=== PATIENT | male | born 1945 | race Caucasian/White ===

== ENCOUNTER → 2016-08-18 | Outpatient (CLI) | payer MEDICARE, BC ==
[2016-08-18 08:05] LABS: ABSOLUTE EOSINOPHILS # (AUTO) 0.1 10^3/uL (0.0-0.6); ABSOLUTE LYMPHOCYTES (AUTO) 1.4 10^3/uL (0.5-4.7); ABSOLUTE MONOCYTES (AUTO) 0.4 10^3/uL (0.1-1.4); ABSOLUTE NEUT (AUTO) 1.7 10^3/uL (1.7-8.2); BASOPHILS % (AUTO) 0.7 % (0-2); EOSINOPHILS % (AUTO) 2.7 % (0-6); HEMATOCRIT 42.5 % (37.9-51.0); HEMOGLOBIN 14.9 g/dL (13.5-17.0); HGB HCT DIFFERENCE 2.2; LYMPHOCYTES % (AUTO) 39.5 % (13-45); MEAN CORPUSCULAR VOLUME 86 fl (80-97); RED BLOOD COUNT 4.97 10^6/uL (4.35-5.55); RED CELL DISTRIBUTION WIDTH 12.8 % (11.5-14.0); SEGMENTED NEUTROPHILS % (AUTO) 47.1 % (42-78); WHITE BLOOD COUNT 3.5 10^3/uL (4.0-10.5)
[2016-08-18 08:36] LABS: ALANINE AMINOTRANSFERASE 46 U/L (21-72); ALBUMIN 4.3 g/dL (3.5-5.0); ALKALINE PHOSPHATASE 36 U/L (38-126); ANION GAP 10 (5-19); ASPARTATE AMINO TRANSFERASE 33 U/L (17-59); BILIRUBIN,DIRECT 0.4 mg/dL (0.0-0.4); BILIRUBIN,TOTAL 2.5 mg/dL (0.2-1.3); BLOOD UREA NITROGEN 22 mg/dL (7-20); CALCIUM 9.4 mg/dL (8.4-10.2); CARBON DIOXIDE 27 mmol/L (22-30); CHLORIDE 106 mmol/L (98-107); CHOLESTEROL 124.42 mg/dL (0-200); CREATININE RESULT 0.77 mg/dL (0.52-1.25); Direct HDL 49 mg/dL (>40); GLUCOSE 109 mg/dL (75-110); POTASSIUM 4.6 mmol/L (3.6-5.0); SODIUM 143.2 mmol/L (137-145); TRIGLYCERIDES 85 mg/dL (<150)
[2016-08-18 08:54] LABS: DIRECT LDL 52 mg/dL (<100)
== END ==
LOC: OD 07:24
PROVIDERS: ATTEND Internal Medicine
DX: I48.0 Paroxysmal atrial fibrillation (principal); G47.33 Obstructive sleep apnea (adult) (pediatric); R53.83 Other fatigue; R35.1 Nocturia; E78.5 Hyperlipidemia, unspecified
CPT/HCPCS: 36415; 80053; 80061; 84153; 84443; 85025

== ENCOUNTER → 2016-12-03 | Outpatient (CLI) | payer MEDICARE, BC ==
--- NOTE | 2016-12-04 17:47 | RADIOLOGY REPORT (SQ) ---
EXAM DESCRIPTION: U/S RETROPERITON (RENAL/AORTA) COMPLETED DATE/TIME: 12/03/2016 10:33 am REASON FOR STUDY: RENAL CYST N28.1 CYST OF KIDNEY, ACQUIRED COMPARISON: MRI abdomen 03/27/2013 CT abdomen pelvis 03/03/2013 TECHNIQUE: Dynamic and static grayscale images acquired of the kidneys and bladder and recorded on P ACS. Additional selected color Doppler and spectral images recorded. LIMITATIONS: None. FINDINGS: RIGHT KIDNEY: Normal size 10.4 cm in length. Normal echogenicity. No solid or suspicious m asses. No hydronephrosis. No calcifications. 2.6 cm benign right upper pole renal cortical cyst unch anged. LEFT KIDNEY: Normal size, 12.2 cm in length. Normal echogenicity. No solid or suspicious masses. No hydronephrosis. No calcifications. BLADDER: No masses. No bladder calculi OTHER FINDINGS: Prostate 5 x 5 x 4.5 cm in size, indenting the bladder base IMPRESSION: Stable 2.6 cm right upper pole renal cortical cyst. No hydronephrosis. TECHNICAL DOCUMENTATION: JOB ID: [id number]- All Rights Reserved
== END ==
LOC: RAD 09:37
PROVIDERS: ATTEND Internal Medicine
DX: N28.1 Cyst of kidney, acquired (principal)
CPT/HCPCS: 76770

== ENCOUNTER 2017-03-26 12:20 | Day surgery (SDC) | payer MEDICARE, BC ==
[~2017-03-26 12:20] MED LIST: EPINEPHRINE INJ 1 MG/10 ML DISP.SYRIN ONE; FENTANYL CITRATE INJ/PF 100 MCG/2 ML AMPUL ONE; FLUMAZENIL INJ 0.5 MG/5 ML VIAL ONE; GLUCAGON,HUMAN RECOMB 1 MG INJ ONE; GLYCOPYRROLATE INJ 0.4 MG/2 ML VIAL ONE; MIDAZOLAM 2 MG/2 ML INJ ONE; NALOXONE HCL INJ/PF 0.4 MG/1 ML SDV ONE; ONDANSETRON HCL INJ/PF 4 MG/2 ML SDV ONE
--- NOTE | 2017-03-26 12:33 | HISTORY AND PHYSICAL E ---
History and Physical NAME: PRIMITIVO SOLORZANO : 1945 AGE: 71Y ADMITTED: 03/26/2017 ROOM: CHIEF COMPLAINT: Rectal bleeding. HISTORY OF PRESENT ILLNESS: Patient is known to me. I saw him back in 2012 where he did have colon exam showing tiny polyps, descending colon; tiny polyp, transverse colon. He did have mild diverticulosis. At this time, patient presents with rectal bleeding. He is admitted for flexible sigmoidoscopy. I saw the patient in 2013. He is being followed by Dr. Mccullough. He does have atrial fibrillation. He was taking Coumadin and he switched to Eliquis. SOCIAL HISTORY: Does not smoke. Drinks socially. SURGICAL HISTORY: 1. Umbilical hernia. 2. Recent back surgery. Patient takes ibuprofen and Motrin as needed for back pain. MEDICAL HISTORY: ALLERGIES: PENICILLIN. REVIEWING OF SYSTEMS: CARDIAC: Negative for heart disease. ENDOCRINE: Negative for diabetes. FAMILY HISTORY: Unremarkable. PHYSICAL EXAMINATION: GENERAL: Pleasant, alert, oriented, in no acute distress. VITAL SIGNS: Blood pressure 120/80. Pulse 80. Respirations 18. Temperature is 98. HEAD, EYES, EARS, NOSE, THROAT: Normal. NECK: Is supple. LUNGS: Are clear. ABDOMEN: Soft. NEUROLOGIC: Examination negative. MEDICATIONS: Patient takes: 1. Blood thinner. 2. Lisinopril. 3. Metoprolol. CONCLUSION: RECTAL BLEEDING. PLAN: Flexible sigmoidoscopy. Today is 03/25/2017; admit tomorrow, 03/26/2017. DICTATING PHYSICIAN: SIMÓN HANNAH M.D. [id number] Y#: [id number] ID: [id number] JOB#: [id number] ACCT: [id number] cc:SIMÓN HANANH M.D. >
[2017-03-26] MEDS: MIDAZOLAM 2 MG/2 ML INJ ONE ×2 (13:40→13:44)
--- NOTE | 2017-03-26 14:42 | OPERATIVE REPORT E ---
Operative Report NAME: PRIMITIVO SOLORZANO : 1945 AGE: 71Y DATE OF SURGERY: 03/26/2017 ROOM: PREOPERATIVE DIAGNOSIS: Rectal bleeding. POSTOPERATIVE DIAGNOSES: 1. External hemorrhoids, mild. 2. Sigmoid diverticulosis. PROCEDURE: Flexible sig. SURGEON: SIMÓN HANNAH M.D. TISSUE REMOVED OR ALTERED: None. ANESTHESIA: Versed 2, fentanyl 100. DESCRIPTION OF PROCEDURE: Rectal exam: External hemorrhoids, mild, most likely the cause of the bleeding. Rectum otherwise normal. Sigmoid diverticulosis. Descending colon normal, brown stool. The sterilely visualized was normal. Scope withdrawn from sigmoid descending all the way to the rectum. CONCLUSION: Rectal bleeding, most likely from external hemorrhoids. Flexible sig showing external hemorrhoids and diverticulosis with no active bleeding. PLAN: Will do lab studies. Patient has enlarged prostate. Will do prostate testing. Patient to stay on soft diet. I will put him on stool softener, Colace 100 daily at bedtime. Followup office visit in the next few days. DICTATING PHYSICIAN: SIMÓN HANNAH M.D. [id number] PHY#: [id number] ID: [id number] JOB#: [id number] ACCT: [id number] cc:SIMÓN HANNAH M.D. >
[2017-03-26 14:52] VITALS: BP 140/92
[2017-03-26 15:11] LABS: ABSOLUTE LYMPHOCYTES (AUTO) 0.9 10^3/uL (0.5-4.7); ABSOLUTE MONOCYTES (AUTO) 0.3 10^3/uL (0.1-1.4); ABSOLUTE NEUT (AUTO) 1.9 10^3/uL (1.7-8.2); BASOPHILS % (AUTO) 0.4 % (0-2); EOSINOPHILS % (AUTO) 1.2 % (0-6); HEMATOCRIT 42.3 % (37.9-51.0); HGB HCT DIFFERENCE 2.7; LYMPHOCYTES % (AUTO) 28.7 % (13-45); MEAN CORPUSCULAR HEMOGLOBIN 30.6 pg (27.0-33.4); MEAN CORPUSCULAR HGB CONC 35.4 g/dL (32.0-36.0); MEAN CORPUSCULAR VOLUME 86 fl (80-97); MONOCYTES % (AUTO) 8.8 % (3-13); RED BLOOD COUNT 4.89 10^6/uL (4.35-5.55); RED CELL DISTRIBUTION WIDTH 12.5 % (11.5-14.0); SEGMENTED NEUTROPHILS % (AUTO) 60.9 % (42-78); WHITE BLOOD COUNT 3.1 10^3/uL (4.0-10.5)
[2017-03-26 15:56] LABS: CARCINOEMBRYONIC ANTIGEN 1.2 ng/mL (<3.0)
--- NOTE | 2017-03-28 15:09 | DISCHARGE SUMMARY E ---
Discharge Summary NAME: PRIMITIVO SOLORZANO : 1945 AGE: 71Y ADMITTED: 03/26/2017 DISCHARGED: 03/26/2017 HISTORY AND HOSPITAL COURSE: The patient is a 71-year-old male who presented with rectal bleeding. Flexible sigmoidoscopy shows no active bleeding. External hemorrhoids, significant diverticulosis. DISCHARGE PLAN: 1. Baseline CBC and prostate specific antigen. 2. Soft diet. 3. Stool softener. 4. Follow up office visit in the next few days. DICTATING PHYSICIAN: SIMÓN HANNAH M.D. [id number] PHY#: [id number] ID: [id number] JOB#: [id number] ACCT: [id number] cc:SIMÓN HANNAH M.D. >
== END 2017-03-26 14:55 | disposition home or self-care (01) ==
LOC: END 12:20
PROVIDERS: ATTEND Specialist
PROC: 0DJD8ZZ Inspection of Lower Intestinal Tract, Via Natural or Artificial Opening Endoscopic (ICD-10-PCS; principal; 2017-03-26 13:15)
DX: K62.5 Hemorrhage of anus and rectum (principal); K64.4 Residual hemorrhoidal skin tags; K57.30 Diverticulosis of large intestine without perforation or abscess without bleeding; Z12.5 Encounter for screening for malignant neoplasm of prostate; Z86.010 Personal history of colon polyps; I48.91 Unspecified atrial fibrillation; Z79.02 Long term (current) use of antithrombotics/antiplatelets; Z79.899 Other long term (current) drug therapy; Z88.0 Allergy status to penicillin
CPT/HCPCS: 45330; 36415; 82378; 85025; G0103; J2250; J3010; J1610; J2405; J0171; J2310; J3490

== ENCOUNTER → 2017-10-09 | Outpatient (CLI) | payer MEDICARE, BC ==
[2017-10-09 08:59] LABS: ABSOLUTE EOSINOPHILS # (AUTO) 0.1 10^3/uL (0.0-0.6); ABSOLUTE LYMPHOCYTES (AUTO) 1.2 10^3/uL (0.5-4.7); ABSOLUTE MONOCYTES (AUTO) 0.3 10^3/uL (0.1-1.4); ABSOLUTE NEUT (AUTO) 1.5 10^3/uL (1.7-8.2); BASOPHILS % (AUTO) 0.7 % (0-2); EOSINOPHILS % (AUTO) 2.5 % (0-6); HEMATOCRIT 44.1 % (37.9-51.0); HEMOGLOBIN 15.4 g/dL (13.5-17.0); LYMPHOCYTES % (AUTO) 40.2 % (13-45); MEAN CORPUSCULAR HEMOGLOBIN 30.3 pg (27.0-33.4); MEAN CORPUSCULAR HGB CONC 34.8 g/dL (32.0-36.0); MEAN CORPUSCULAR VOLUME 87 fl (80-97); MONOCYTES % (AUTO) 9.2 % (3-13); RED BLOOD COUNT 5.07 10^6/uL (4.35-5.55); RED CELL DISTRIBUTION WIDTH 12.8 % (11.5-14.0); SEGMENTED NEUTROPHILS % (AUTO) 47.4 % (42-78); TOTAL CELLS COUNTED % (AUTO) 100 %; WHITE BLOOD COUNT 3.1 10^3/uL (4.0-10.5)
[2017-10-09 09:16] LABS: PLATELET COUNT 82 10^3/uL (150-450)
[2017-10-09 09:19] LABS: ALANINE AMINOTRANSFERASE 40 U/L (21-72); ALBUMIN 4.5 g/dL (3.5-5.0); ALKALINE PHOSPHATASE 30 U/L (38-126); ANION GAP 10 (5-19); ASPARTATE AMINO TRANSFERASE 31 U/L (17-59); BILIRUBIN,DIRECT 0.4 mg/dL (0.0-0.4); BILIRUBIN,TOTAL 2.9 mg/dL (0.2-1.3); BLOOD UREA NITROGEN 23 mg/dL (7-20); CALCIUM 9.6 mg/dL (8.4-10.2); CARBON DIOXIDE 29 mmol/L (22-30); CHLORIDE 106 mmol/L (98-107); CHOLESTEROL 114.89 mg/dL (0-200); GLUCOSE 102 mg/dL (75-110); POTASSIUM 4.7 mmol/L (3.6-5.0); SODIUM 144.6 mmol/L (137-145); TOTAL PROTEIN 7.1 g/dL (6.3-8.2); TRIGLYCERIDES 75 mg/dL (<150)
[2017-10-09 09:29] LABS: DIRECT LDL 50 mg/dL (<100)
== END ==
LOC: OD 08:03
PROVIDERS: ATTEND Internal Medicine
DX: I48.0 Paroxysmal atrial fibrillation (principal); N40.0 Benign prostatic hyperplasia without lower urinary tract symptoms; E78.5 Hyperlipidemia, unspecified; R35.1 Nocturia; G47.33 Obstructive sleep apnea (adult) (pediatric)
CPT/HCPCS: 36415; 80053; 80061; 84153; 84443; 85025

== ENCOUNTER → 2017-12-03 | Outpatient (CLI) | payer MEDICARE, BC ==
--- NOTE | 2017-12-03 08:10 | RADIOLOGY REPORT (SQ) ---
EXAM DESCRIPTION: U/S ABD AORTIC SCREENING COMPLETED DATE/TIME: 12/03/2017 7:49 am REASON FOR STUDY: ENCTR FOR SCREENING FOR CARDIOVASCULAR DISORDERS (Z13.6) Z13.6 ENCOUNTER FOR SCRE ENING FOR CARDIOVASCULAR DISORDERS I48.91 UNSPECIFIED ATRIAL FIBRILLATION Z87.891 PERSONAL HISTORY OF NICOTINE DEPENDENCE COMPARISON: CT abdomen pelvis 03/03/2013 TECHNIQUE: Static and dynamic grayscale images acquired of the aorta and stored on PACs. Selected co sj Doppler and spectral images recorded. LIMITATIONS: None. FINDINGS: AORTIC CALIBER MAXIMAL PROXIMAL: 1.8 cm. MID: 1.6 cm. DISTAL: 1.4 cm. ILIAC DIAMETER RIGHT: Not visualized due to bowel gas LEFT: Not visualized due to bowel gas OTHER: No other significant finding. IMPRESSION: NO ABDOMINAL AORTIC ANEURYSM. COMMENT: Aorta screening examinations categories: Negative - less than 3 cm. TECHNICAL DOCUMENTATION: JOB ID: [id number] [employer]- All Rights Reserved Reading location - IP/workstation name: [email or web address]
== END ==
LOC: RAD 07:18
PROVIDERS: ATTEND Internal Medicine
DX: Z13.6 Encounter for screening for cardiovascular disorders (principal); I48.91 Unspecified atrial fibrillation; Z87.891 Personal history of nicotine dependence
CPT/HCPCS: 76706

== ENCOUNTER → 2018-04-22 | Outpatient (CLI) | payer MEDICARE, BC ==
--- NOTE | 2018-04-22 11:56 | RADIOLOGY REPORT (SQ) ---
EXAM DESCRIPTION: CT ABD/PELVIS WITH IV ORAL COMPLETED DATE/TIME: 04/22/2018 10:45 am REASON FOR STUDY: CIRRHOSIS K74.69 OTHER CIRRHOSIS OF LIVER COMPARISON: 03/03/2013 TECHNIQUE: CT scan of the abdomen and pelvis performed using helical scanning technique with dynamic intravenous contrast injection. No oral contrast. Images reviewed with lung, soft tissue, and bone windows. Reconstructed coronal and sagittal MPR images reviewed. Delayed images for evaluation of the urinary system also acquired. All images stored on PACS. All CT scanners at this facility use dose modulation, iterative reconstruction, and/or weight based d osing when appropriate to reduce radiation dose to as low as reasonably achievable (ALARA). [facility]: Dose Right [facility]: CareDose [facility]: Dose Right [facility]: Teradose 4D [facility]: D and K interprises CONTRAST TYPE AND DOSE: contrast/concentration: Isovue 350.00 mg/ml; Total Contrast Delivered: 100.0 ml; Total Saline Delivered: 72.0 ml 100 cc Omnipaque 350 RENAL FUNCTION: Creatinine 0.9 RADIATION DOSE: CT Rad equipment meets quality standard of care and radiation dose reduction techniq ues were employed. CTDIvol: 22.5 - 24.8 mGy. DLP: 2726 mGy-cm.. LIMITATIONS: None. FINDINGS: LOWER CHEST: No acute pulmonary process. Scattered coronary atherosclerosis. LIVER: Normal size. No masses. No dilated ducts. SPLEEN: Normal size. No focal lesions. PANCREAS: No masses. No significant calcifications. No adjacent inflammation or peripancreatic fluid collections. Pancreatic duct not dilated. GALLBLADDER: No identified stones by CT criteria. No inflammatory changes to suggest cholecystitis. ADRENAL GLANDS: No significant masses or asymmetry. RIGHT KIDNEY AND URETER: No solid masses. Right upper pole cyst, mildly increased in size from prior . No significant calcifications. No hydronephrosis or hydroureter. LEFT KIDNEY AND URETER: No solid masses. No significant calcifications. No hydronephrosis or hydr oureter. AORTA AND VESSELS: Scattered aortoiliac atherosclerosis. No aneurysm. Patent celiac, SMA, bilateral renals and ANA MARIA. RETROPERITONEUM: No retroperitoneal adenopathy, hemorrhage or masses. BOWEL AND PERITONEAL CAVITY: No masses or inflammatory changes. No free fluid or peritoneal masses. APPENDIX: Normal. PELVIS: No mass. No free fluid. Normal bladder. ABDOMINAL WALL: Evidence of prior hernia repair. No discrete mass. BONES: No acute bony abnormality. No suspicious osseous lesions. OTHER: No other significant finding. IMPRESSION: No evidence of acute intra-abdominal/pelvic process. TECHNICAL DOCUMENTATION: JOB ID: [id number] Quality ID # 436: Final reports with documentation of one or more dose reduction techniques (e.g., Au tomated exposure control, adjustment of the mA and/or kV according to patient size, use of iterative reconstruction technique) 2010 [employer]- All Rights Reserved Reading location - IP/workstation name: [facility]
== END ==
LOC: RAD 09:54
PROVIDERS: ATTEND Internal Medicine
DX: K74.69 Other cirrhosis of liver (principal)
CPT/HCPCS: 74177; 82565

== ENCOUNTER 2018-05-10 09:08 | Day surgery (SDC) | payer MEDICARE, BC ==
[2018-05-10 10:46] LABS: HEMATOCRIT 43.9 % (37.9-51.0); HEMOGLOBIN 15.3 g/dL (13.5-17.0); MEAN CORPUSCULAR HEMOGLOBIN 30.4 pg (27.0-33.4); MEAN CORPUSCULAR HGB CONC 34.9 g/dL (32.0-36.0); MEAN CORPUSCULAR VOLUME 87 fl (80-97); RED BLOOD COUNT 5.03 10^6/uL (4.35-5.55); RED CELL DISTRIBUTION WIDTH 12.5 % (11.5-14.0); WHITE BLOOD COUNT 3.1 10^3/uL (4.0-10.5)
[2018-05-10 10:49] LABS: INTERNATIONAL RATION (INR) 1.05; PROTHROMBIN TIME 14.2 SEC (11.4-15.4)
[2018-05-10 10:50] LABS: PARTIAL THROMBOPLASTIN TIME 31.2 SEC (23.5-35.8)
[2018-05-10 11:04] LABS: BLOOD UREA NITROGEN 20 mg/dL (7-20)
[2018-05-10 11:23] LABS: PLATELET COUNT 79 10^3/uL (150-450)
[2018-05-10] MEDS ORDERED: MIDAZOLAM 2 MG/2 ML INJ ONE (11:42)
[2018-05-10] MEDS ORDERED: FENTANYL CITRATE INJ/PF 100 MCG/2 ML AMPUL ONE (11:43)
[2018-05-10] MEDS ORDERED: LIDOCAINE 1% INJ-PF (10 MG/ML) 30 ML SDV ONE (11:43)
--- NOTE | 2018-05-10 12:54 | RADIOLOGY REPORT (SQ) ---
EXAM DESCRIPTION: CT BIOPSY BONE MARROW, NEEDLE; CT NEEDLE PLACEMENT COMPLETED DATE/TIME: 05/10/2018 12:45 pm REASON FOR STUDY: OTHER PANCYTOPENIA; OTHER PANCYTOPENIA, BONE MARROW BIOPSY D61.818 OTHER PANCYTOP ENIA Z79.01 SNF (CURRENT) USE OF ANTICOAGULANTS COMPARISON: None. TECHNIQUE: CT guided biopsy of the right iliac crest bone marrow performed with conscious sedation. CT Fluoroscopy Time: [address] scanners at this facility use dose modulation, iterative reconstruction, and/or weight based d osing when appropriate to reduce radiation dose to as low as reasonably achievable (ALARA). [facility]: Dose Right [facility]: CareDose [facility]: Dose Right [facility]: Teradose 4D [facility]: [employer] RADIATION DOSE: mGy. FINDINGS: After obtaining informed consent and explaining the risks and benefits of conscious sedati on,the patient agreed to the procedure. Prior to the procedure, a time out was performed to verify th e patient's identity and planned procedure. IV conscious sedation was administered and physician direction by the registered nurse using 1 millig [place] of Versed and 100 micrograms of fentanyl. Physiologic monitoring was provided before, during, an d after sedation. The total sedation time was 30 minutes. Documentation and face to face time, the performing proceduralist, spent monitoring the patient: [address] m in[address]. Noncontrast CT scanning was performed to localize the percutaneous site for the biopsy approach. After sterile skin prep and local lidocaine for skin and deep tissue anesthesia, a coaxial biopsy nee dle was used to obtain a bone marrow aspirate, and a bone marrow core of tissue. The biopsy tissue wa s received by Dr. Taylor's nurse to be sent out for evaluation. There were no immediate complication s. Pathology is pending at the time of dictation. IMPRESSION: CT GUIDED ASPIRATE AND CORE BIOPSY OF THE RIGHT POSTERIOR ILIAC CREST BONE MARROW PERFOR MED WITHOUT IMMEDIATE COMPLICATION. PATHOLOGY PENDING. IV CONSCIOUS SEDATION WITHOUT COMPLICATION. COMMENT: Quality ID 145: Final reports for procedures using fluoroscopy that document radiation exp osure indices, or exposure time and number of fluorographic images (if radiation exposure indices are not available) Patient medication list reviewed: Yes- Quality ID# [id number]:Eligible professional attests to documenting i n the medical record they obtained, updated, or reviewed the patient's current medications.. TECHNICAL DOCUMENTATION: JOB ID: [id number] Quality ID# 436: Final reports with documentation of one or more dose reduction techniques (e.g., Aut omated exposure control, adjustment of the mA and/or kV according to patient size, use of iterative r econstruction technique) 2010 [employer]- All Rights Reserved Reading location - IP/workstation name: [email or web address]
--- NOTE | 2018-05-10 12:54 | RADIOLOGY REPORT (SQ) ---
EXAM DESCRIPTION: CT BIOPSY BONE MARROW, NEEDLE; CT NEEDLE PLACEMENT COMPLETED DATE/TIME: 05/10/2018 12:45 pm REASON FOR STUDY: OTHER PANCYTOPENIA; OTHER PANCYTOPENIA, BONE MARROW BIOPSY D61.818 OTHER PANCYTOP ENIA Z79.01 RETIREMENT (CURRENT) USE OF ANTICOAGULANTS COMPARISON: None. TECHNIQUE: CT guided biopsy of the right iliac crest bone marrow performed with conscious sedation. CT Fluoroscopy Time: [address] scanners at this facility use dose modulation, iterative reconstruction, and/or weight based d osing when appropriate to reduce radiation dose to as low as reasonably achievable (ALARA). [facility]: Dose Right [facility]: CareDose [facility]: Dose Right [facility]: Teradose 4D [facility]: [employer] RADIATION DOSE: mGy. FINDINGS: After obtaining informed consent and explaining the risks and benefits of conscious sedati on,the patient agreed to the procedure. Prior to the procedure, a time out was performed to verify th e patient's identity and planned procedure. IV conscious sedation was administered and physician direction by the registered nurse using 1 millig [place] of Versed and 100 micrograms of fentanyl. Physiologic monitoring was provided before, during, an d after sedation. The total sedation time was 30 minutes. Documentation and face to face time, the performing proceduralist, spent monitoring the patient: [address] m in[address]. Noncontrast CT scanning was performed to localize the percutaneous site for the biopsy approach. After sterile skin prep and local lidocaine for skin and deep tissue anesthesia, a coaxial biopsy nee dle was used to obtain a bone marrow aspirate, and a bone marrow core of tissue. The biopsy tissue wa s received by Dr. Taylor's nurse to be sent out for evaluation. There were no immediate complication s. Pathology is pending at the time of dictation. IMPRESSION: CT GUIDED ASPIRATE AND CORE BIOPSY OF THE RIGHT POSTERIOR ILIAC CREST BONE MARROW PERFOR MED WITHOUT IMMEDIATE COMPLICATION. PATHOLOGY PENDING. IV CONSCIOUS SEDATION WITHOUT COMPLICATION. COMMENT: Quality ID 145: Final reports for procedures using fluoroscopy that document radiation exp osure indices, or exposure time and number of fluorographic images (if radiation exposure indices are not available) Patient medication list reviewed: Yes- Quality ID# [id number]:Eligible professional attests to documenting i n the medical record they obtained, updated, or reviewed the patient's current medications.. TECHNICAL DOCUMENTATION: JOB ID: [id number] Quality ID# 436: Final reports with documentation of one or more dose reduction techniques (e.g., Aut omated exposure control, adjustment of the mA and/or kV according to patient size, use of iterative r econstruction technique) 2010 [employer]- All Rights Reserved Reading location - IP/workstation name: [email or web address]
[2018-05-10 14:16] VITALS: BP 107/55
== END 2018-05-10 14:25 | disposition home or self-care (01) ==
LOC: RAD 09:08
PROVIDERS: ATTEND Internal Medicine
DX: D61.818 Other pancytopenia (principal); Z79.01 Long term (current) use of anticoagulants
CPT/HCPCS: 36415; 84520; 82565; 85027; 85610; 85730; 38221; 77012; J2250; J3010; J3490

== ENCOUNTER → 2018-06-24 | Outpatient (CLI) | payer MEDICARE, BC ==
--- NOTE | 2018-06-24 12:17 | RADIOLOGY REPORT (SQ) ---
EXAM DESCRIPTION: MRI RT UPPER JOINT WITHOUT COMPLETED DATE/TIME: 06/24/2018 11:41 am REASON FOR STUDY: M75.121 COMPLETE ROTATR-CUFF TEAR/RUPTR OF R SHOULDER, NOT TRAUMA M75.121 COMPLET E ROTATR-CUFF TEAR/RUPTR OF R SHOULDER, NOT T COMPARISON: None. TECHNIQUE: Right shoulder images acquired and stored on PACS. Multiplanar imaging to include fat sen sitive sequences such as T1, water sensitive sequences such as FST2/STIR, cartilage sensitive sequenc es such as FSPD/gradient-echo sequences. LIMITATIONS: None. FINDINGS: BONE MARROW AND CORTEX: No marrow signal abnormalities worrisome for occult fracture. Sma ll subcortical cysts are present along the bicipital groove, and posterior edge greater tuberosity ri ght humeral head JOINT OR BURSAL EFFUSION: Small amount of fluid in the subacromial/subdeltoid bursa GLENO-HUMERAL ARTICULATION: Normal articulation. No subluxation. No cystic change. No osteophytes or cartilage loss. ACROMION AND AC JOINT: Type 2 acromion with moderate bony spurring and synovial thickening. Mild na rrowing of the subacromial space. Edema in the distal clavicle and acromion best shown on sagittal i mage 11 and coronal image 12. ROTATOR CUFF AND INTERVAL: Small full-thickness tear anterior edge supraspinatus tendon best shown on sagittal image 5 and coronal images 10-13. There is tendinopathy throughout the remainder of the nolan praspinatus tendon and undersurface infraspinatus tendon. There is thickening of the rotator interval tissues worrisome for adhesive capsulitis LABRUM AND BICEPS LABRAL COMPLEX: Intra-articular long head biceps tendon high signal from tendinop athy. Diffusely small superior labrum without paralabral cyst, best shown on axial images 5-8. REMAINDER OF LABRUM AND IGHL : No gross tear or paralabral cyst formation. Labral evaluation is less than optimal without joint distention. Small axillary recess with thickening of the inferior glenoh umeral ligament, question adhesive capsulitis PERIARTICULAR AND ADJACENT SOFT TISSUES: No masses or abnormal nodes. OTHER: No other significant finding. IMPRESSION: Small full-thickness tear anterior edge supraspinatus tendon Intra-articular long head biceps tendinopathy with small superior labral tear. Acromioclavicular joint arthropathy. TECHNICAL DOCUMENTATION: JOB ID: [id number] [employer]- All Rights Reserved Reading location - IP/workstation name: [email or web address]
== END ==
LOC: RAD 10:46
PROVIDERS: ATTEND Orthopaedic Surgery
DX: M75.121 Complete rotator cuff tear or rupture of right shoulder, not specified as traumatic (principal)

== ENCOUNTER → 2018-07-06 | Outpatient (CLI) | payer MEDICARE, BC ==
[2018-07-06 09:05] LABS: A TYPE INFLUENZA AG POSITIVE (NEGATIVE); B INFLUENZA AG NEGATIVE (NEGATIVE)
== END ==
LOC: OD 08:25
PROVIDERS: ATTEND Family Medicine Geriatric Medicine
DX: J01.40 Acute pansinusitis, unspecified (principal); J06.9 Acute upper respiratory infection, unspecified; R05 Cough; R50.81 Fever presenting with conditions classified elsewhere
CPT/HCPCS: 87804

== ENCOUNTER 2018-07-22 12:44 | Inpatient (IN) | payer MEDICARE, BC ==
--- NOTE | 2018-07-22 13:05 | ER Document Report ---
ED Medical Screen (RME) - General Chief Complaint: Abdominal Pain Stated Complaint: LEFT SIDE ABDOMINAL PAIN Time Seen by Provider: 07/22/18 12:58 Primary Care Provider: HERMILO JARAMILLO MD [Primary Care Provider] - Follow up as needed Mode of Arrival: Ambulatory Information source: Patient Notes: Patient is a 72-year-old male who presents the emergency department chief complaint of left lower quadrant pain that has been ongoing for 3 days with progressive worsening. Patient denies any nausea, vomiting, diarrhea or fevers. Reports normal bowel movements daily. Patient reports the pain is worse with movement or with palpation. States the pain is tolerable when he is at rest. Patient does report a history of diverticulitis. Exam: Tenderness to palpation to left lower quadrant. I have greeted and performed a rapid initial assessment of this patient. A comprehensive ED assessment and evaluation of the patient, analysis of test results and completion of the medical decision making process will be conducted by additional ED providers. Dictation of this chart was performed using voice recognition software; therefore, there may be some unintended grammatical errors. TRAVEL OUTSIDE OF THE [place] IN LAST 30 DAYS: No - Related Data Allergies/Adverse Reactions: Penicillins Allergy (Verified 03/26/17 12:37) PCN Allergy (Severe, Uncoded 11/07/14 18:12) Rash, Itching Past Medical History - Past Medical History Cardiac Medical History: Reports: Hx Atrial Fibrillation, Hx Hypertension - ON MEDS Denies: Hx Coronary Artery Disease, Hx Heart Attack Pulmonary Medical History: Denies: Hx Asthma, Hx Bronchitis, Hx COPD, Hx Pneumonia Neurological Medical History: Denies: Hx Cerebrovascular Accident, Hx Seizures Renal/ Medical History: Reports: Hx Benign Prostatic Hyperplasia. Denies: Hx Peritoneal Dialysis Musculoskeltal Medical History: Reports Hx Arthritis - MILD Past Surgical History: Reports: Hx Appendectomy, Hx Cardiac Surgery - Ablation, Hx Orthopedic Surgery - Fx of L 3rd digit, Hx Tonsillectomy - Immunizations Hx Diphtheria, Pertussis, Tetanus Vaccination: Yes History of Influenza Vaccine for 01/2017 - 06/2017 Season: Unknown Influenza Administration Date for 01/2017 - 06/2017 Season: 02/17/17 Physical Exam - Vital signs Vitals: Temp Pulse Resp BP Pulse Ox 98.7 F 84 16 129/86 H 97 07/22/18 12:54 07/22/18 12:54 07/22/18 12:54 07/22/18 12:54 07/22/18 12:54 Course - Vital Signs Vital signs: Temp Pulse Resp BP Pulse Ox 98.7 F 84 16 129/86 H 97 07/22/18 12:54 07/22/18 12:54 07/22/18 12:54 07/22/18 12:54 07/22/18 12:54 Doctor's Discharge - Discharge Referrals: HERMILO JARAMILLO MD [Primary Care Provider] - Follow up as needed
[2018-07-22 13:43] LABS: APPEARANCE,URINE CLEAR; BILIRUBIN,URINE NEGATIVE (NEGATIVE); COLOR,URINE YELLOW; GLUCOSE, URINE NEGATIVE (NEGATIVE); KETONES,URINE NEGATIVE (NEGATIVE); LEUKOCYTE ESTERASE,URINE NEGATIVE (NEGATIVE); NITRITE,URINE NEGATIVE (NEGATIVE); PROTEIN,URINE NEGATIVE (NEGATIVE); URINE SPECIFIC GRAVITY 1.017; UROBILINOGEN,URINE NEGATIVE mg/dL (<2.0)
[2018-07-22 13:51] LABS: ALANINE AMINOTRANSFERASE 31 U/L (21-72); ALBUMIN 4.4 g/dL (3.5-5.0); ALKALINE PHOSPHATASE 35 U/L (38-126); ANION GAP 7 (5-19); ASPARTATE AMINO TRANSFERASE 29 U/L (17-59); BILIRUBIN,DIRECT 0.3 mg/dL (0.0-0.4); BILIRUBIN,TOTAL 2.9 mg/dL (0.2-1.3); BLOOD UREA NITROGEN 23 mg/dL (7-20); CALCIUM 10.2 mg/dL (8.4-10.2); CARBON DIOXIDE 27 mmol/L (22-30); CHLORIDE 105 mmol/L (98-107); GLUCOSE 89 mg/dL (75-110); LIPASE 191.1 U/L (23-300); POTASSIUM 4.2 mmol/L (3.6-5.0); SODIUM 138.7 mmol/L (137-145); TOTAL PROTEIN 7.1 g/dL (6.3-8.2)
[2018-07-22 14:40] LABS: ABSOLUTE EOSINOPHILS # (AUTO) 0.1 10^3/uL (0.0-0.6); ABSOLUTE LYMPHOCYTES (AUTO) 1.3 10^3/uL (0.5-4.7); ABSOLUTE MONOCYTES (AUTO) 0.5 10^3/uL (0.1-1.4); ABSOLUTE NEUT (AUTO) 6.2 10^3/uL (1.7-8.2); BASOPHILS % (AUTO) 0.4 % (0-2); EOSINOPHILS % (AUTO) 0.9 % (0-6); HEMATOCRIT 42.8 % (37.9-51.0); HEMOGLOBIN 15.1 g/dL (13.5-17.0); LYMPHOCYTES % (AUTO) 15.7 % (13-45); MEAN CORPUSCULAR HEMOGLOBIN 30.6 pg (27.0-33.4); MEAN CORPUSCULAR HGB CONC 35.3 g/dL (32.0-36.0); MEAN CORPUSCULAR VOLUME 87 fl (80-97); MONOCYTES % (AUTO) 6.1 % (3-13); RED BLOOD COUNT 4.94 10^6/uL (4.35-5.55); RED CELL DISTRIBUTION WIDTH 12.5 % (11.5-14.0); SEGMENTED NEUTROPHILS % (AUTO) 76.9 % (42-78); TOTAL CELLS COUNTED % (AUTO) 100 %; WHITE BLOOD COUNT 8.1 10^3/uL (4.0-10.5)
--- NOTE | 2018-07-22 14:59 | ER Document Report ---
ED GI/ - General Chief Complaint: Abdominal Pain Stated Complaint: LEFT SIDE ABDOMINAL PAIN Time Seen by Provider: 07/22/18 12:58 Primary Care Provider: HERMILO JARAMILLO MD [Primary Care Provider] - Follow up as needed Mode of Arrival: Ambulatory Notes: 72-year-old male to the emergency department chief complaint of left lower quadrant abdominal pain. Pain has been present for 3 days. Worse in the left lower quadrant. Seems to radiate from the umbilicus over to the left lower quadrant. Hurts with movement. Hurts to palpate. Denies any fever, chills, sweats. Denies any back pain or difficulty with urination. TRAVEL OUTSIDE OF THE [place] IN LAST 30 DAYS: No - HPI Patient complains to provider of: Abdominal pain Quality of pain: Achy, Dull Severity at maximum: Moderate Severity in ED: Moderate Pain Level: 3 Location: LUQ, Suprapubic Associated symptoms: None Exacerbated by: Movement, Walking - Related Data Allergies/Adverse Reactions: Penicillins Allergy (Verified 03/26/17 12:37) PCN Allergy (Severe, Uncoded 11/07/14 18:12) Rash, Itching Past Medical History - General Information source: Patient - Social History Smoking Status: Never Smoker Frequency of alcohol use: None Drug Abuse: None Lives with: Family Family History: Reviewed & Not Pertinent Patient has suicidal ideation: No Patient has homicidal ideation: No - Past Medical History Cardiac Medical History: Reports: Hx Atrial Fibrillation, Hx Hypertension - ON MEDS Denies: Hx Coronary Artery Disease, Hx Heart Attack Pulmonary Medical History: Denies: Hx Asthma, Hx Bronchitis, Hx COPD, Hx Pneumonia Neurological Medical History: Denies: Hx Cerebrovascular Accident, Hx Seizures Renal/ Medical History: Reports: Hx Benign Prostatic Hyperplasia. Denies: Hx Peritoneal Dialysis Musculoskeletal Medical History: Reports Hx Arthritis - MILD Past Surgical History: Reports: Hx Appendectomy, Hx Cardiac Surgery - Ablation, Hx Orthopedic Surgery - Fx of L 3rd digit, Hx Tonsillectomy - Immunizations Hx Diphtheria, Pertussis, Tetanus Vaccination: Yes Hx Pneumococcal Vaccination: 01/17/14 Review of Systems - Review of Systems Notes: Constitutional: denies: Chills, Diaphoresis, Fever, Malaise, Weakness EENT: denies: Eye discharge, Blurred vision, Tearing, Double vision, Nose congestion, Nose discharge, Throat swelling, Mouth pain Cardiovascular: denies: Palpitations, Heart racing, Orthopnea, Dyspnea, Chest pain Respiratory: denies: Cough, Hurts to breathe, Wheezing, Shortness of breath Gastrointestinal: Patient is complaining of pain in the left lower quadrant and suprapubic area. Radiating to the left lower quadrant. Throbbing. No change in bowel patterns. Genitourinary: denies: Burning, Dysuria, Discharge, Frequency, Flank pain, Hematuria Musculoskeletal: denies: Joint pain, Joint swelling, Muscle pain, Muscle stiffness, back pain Hematologic/Lymphatic: denies: Anemia, Easy bleeding, Easy bruising, Blood clots Neurological/Psychological: denies: Confusion, Dementia, Depression, Loss of consciousness Skin: No lesions, no masses, no skin breakdown, no abscesses Physical Exam - Vital signs Vitals: Temp Pulse Resp BP Pulse Ox 98.7 F 84 16 129/86 H 97 07/22/18 12:54 07/22/18 12:54 07/22/18 12:54 07/22/18 12:54 07/22/18 12:54 Interpretation: Normal - General General appearance: Appears well, Alert - HEENT Head: Normocephalic, Atraumatic Eyes: Normal Pupils: PERRL - Respiratory Respiratory status: No respiratory distress Chest status: Nontender Breath sounds: Normal Chest palpation: Normal - Cardiovascular Rhythm: Regular Heart sounds: Normal auscultation Murmur: No - Abdominal Inspection: Normal Distension: No distension Bowel sounds: Normal Tenderness: Tender - Definite tenderness to light palpation in the suprapubic and left lower quadrant area. Obvious guarding. Organomegaly: No organomegaly - Back Back: Normal, Nontender - Extremities General upper extremity: Normal inspection, Nontender, Normal color, Normal ROM, Normal temperature General lower extremity: Normal inspection, Nontender, Normal color, Normal ROM, Normal temperature, Normal weight bearing. No: Liudmila's sign - Neurological Neuro grossly intact: Yes Cognition: Normal Orientation: AAOx4 [place] Coma Scale Eye Opening: Spontaneous [place] Coma Scale Verbal: Oriented [place] Coma Scale Motor: Obeys Commands [place] Coma Scale Total: 15 Speech: Normal Motor strength normal: LUE, RUE, LLE, RLE Sensory: Normal - Psychological Associated symptoms: Normal affect, Normal mood - Skin Skin Temperature: Warm Skin Moisture: Dry Skin Color: Normal Course - Re-evaluation Re-evalutation: 07/22/18 15:59 Laboratory 07/22/18 07/22/18 07/22/18 13:15 13:15 13:15 WBC Cancelled RBC Cancelled Hgb Cancelled Hct Cancelled MCV Cancelled MCH Cancelled MCHC Cancelled RDW Cancelled Plt Count Cancelled Seg Neutrophils % Cancelled Lymphocytes % Cancelled Monocytes % Cancelled Eosinophils % Cancelled Basophils % Cancelled Absolute Neutrophils Cancelled Absolute Lymphocytes Cancelled Absolute Monocytes Cancelled Absolute Eosinophils Cancelled Absolute Basophils Cancelled Platelet Estimate Cancelled Sodium 138.7 Potassium 4.2 Chloride 105 Carbon Dioxide 27 Anion Gap 7 BUN 23 H Creatinine 0.92 Est GFR ( Amer) > 60 Est GFR (Non-Af Amer) > 60 Glucose 89 Calcium 10.2 Total Bilirubin 2.9 H Direct Bilirubin 0.3 Neonat Total Bilirubin Not Reportable Neonat Direct Bilirubin Not Reportable Neonat Indirect Bili Not Reportable AST 29 ALT 31 Alkaline Phosphatase 35 L Total Protein 7.1 Albumin 4.4 Lipase 191.1 Urine Color YELLOW Urine Appearance CLEAR Urine pH 6.0 Ur Specific [place] 1.017 Urine Protein NEGATIVE Urine Glucose (UA) NEGATIVE Urine Ketones NEGATIVE Urine Blood NEGATIVE Urine Nitrite NEGATIVE Urine Bilirubin NEGATIVE Urine Urobilinogen NEGATIVE Ur Leukocyte Esterase NEGATIVE Urine WBC (Auto) 1 Urine Mucus (Auto) RARE Urine Ascorbic Acid NEGATIVE Slides for Path Review Cancelled 07/22/18 14:28 WBC 8.1 RBC 4.94 Hgb 15.1 Hct 42.8 MCV 87 MCH 30.6 MCHC 35.3 RDW 12.5 Plt Count 80 L Seg Neutrophils % 76.9 Lymphocytes % 15.7 Monocytes % 6.1 Eosinophils % 0.9 Basophils % 0.4 Absolute Neutrophils 6.2 Absolute Lymphocytes 1.3 Absolute Monocytes 0.5 Absolute Eosinophils 0.1 Absolute Basophils 0.0 Platelet Estimate Sodium Potassium Chloride Carbon Dioxide Anion Gap BUN Creatinine Est GFR ( Amer) Est GFR (Non-Af Amer) Glucose Calcium Total Bilirubin Direct Bilirubin Neonat Total Bilirubin Neonat Direct Bilirubin Neonat Indirect Bili AST ALT Alkaline Phosphatase Total Protein Albumin Lipase Urine Color Urine Appearance Urine pH Ur Specific [place] Urine Protein Urine Glucose (UA) Urine Ketones Urine Blood Urine Nitrite Urine Bilirubin Urine Urobilinogen Ur Leukocyte Esterase Urine WBC (Auto) Urine Mucus (Auto) Urine Ascorbic Acid Slides for Path Review 07/22/18 18:24 Abdomen/Pelvis CT 07/22/18 00:00 IMPRESSION: Diverticulitis at the junction of the descending colon and sigmoid colon without evidence of guille perforation or abscess formation. No obvious abscess seen but does demonstrate diverticulitis. Will start on IV antibiotics here and oral antibiotics as well. Pain medication. The rest of his labs look fairly unremarkable so I believe patient is appropriate for outpatient management however long discussion had with him about worsening pain is he could develop an abscess and even become septic if the symptoms got worse. Patient verbalized understanding of these instructions. Currently after antibiotic treatment will discharge in stable condition. - Vital Signs Vital signs: Temp Pulse Resp BP Pulse Ox 97.4 F 74 16 138/69 H 93 07/22/18 16:01 07/22/18 16:01 07/22/18 16:01 07/22/18 16:01 07/22/18 16:26 - Laboratory Result Diagrams: 07/22/18 14:28 07/22/18 13:15 Laboratory results interpreted by me: 07/22/18 07/22/18 13:15 14:28 Plt Count 80 L BUN 23 H Total Bilirubin 2.9 H Alkaline Phosphatase 35 L Discharge - Discharge Clinical Impression: Diverticulitis large intestine Qualifiers: Diverticulitis bleeding: without bleeding Diverticulitis complication: without perforation or abscess Qualified Code(s): K57.32 - Diverticulitis of large intestine without perforation or abscess without bleeding Condition: Good Disposition: HOME, SELF-CARE Instructions: Diverticulitis ([facility]) Additional Instructions: It appears that your pain in the left lower quadrant is due to diverticulitis. This is usually treatable with antibiotics. We have given you antibiotics tonight however you will need to complete the entire course of the antibiotics. Often times this condition can get worse and sometimes an abscess can develop in the abdomen. If your symptoms are getting worse, you develop high fevers, you are unable to take your medication or for any other concerns please do not hesitate to return. Failure to be re-seen and get rechecked with worsening symptoms can lead to severe consequences including sepsis and potential . Prescriptions: Ciprofloxacin HCl [Cipro 500 mg Tablet] 500 mg PO BID #20 tablet Hydrocodone/Acetaminophen [[place] 5-325 mg Tablet] 1 tab PO TID PRN 4 Days #12 tablet PRN Reason: Metronidazole [Flagyl 500 mg Tablet] 500 mg PO TID #30 tablet Ondansetron [Zofran Odt 4 mg Tablet] 1 - 2 tab PO Q4H PRN #15 tab.rapdis PRN Reason: For Nausea/Vomiting Referrals: HERMILO JARAMILLO MD [Primary Care Provider] - Follow up as needed MASOOD ARGUETA MD [ACTIVE STAFF] - Follow up as needed
[2018-07-22 15:06] LABS: PLATELET COUNT 80 10^3/uL (150-450)
[2018-07-22] MEDS ORDERED: ONDANSETRON HCL INJ/PF 4 MG/2 ML SDV IV ONE (15:49)
[2018-07-22] MEDS ORDERED: HYDROMORPHONE HCL INJ/PF 2 MG/ML AMPULE IV ONE ×2 (15:49→18:01)
[2018-07-22] MEDS ORDERED: NORMAL SALINE 500 ML IV ONE (15:50)
--- NOTE | 2018-07-22 17:43 | RADIOLOGY REPORT (SQ) ---
EXAM DESCRIPTION: CT ABD/PELVIS WITH IV ORAL COMPLETED DATE/TIME: 07/22/2018 5:30 pm REASON FOR STUDY: llq ab pain COMPARISON: 04/22/2018 TECHNIQUE: CT scan of the abdomen and pelvis performed using helical scanning technique with dynamic intravenous contrast injection. No oral contrast. Images reviewed with lung, soft tissue, and bone windows. Reconstructed coronal and sagittal MPR images reviewed. Delayed images for evaluation of the urinary system also acquired. All images stored on PACS. All CT scanners at this facility use dose modulation, iterative reconstruction, and/or weight based d osing when appropriate to reduce radiation dose to as low as reasonably achievable (ALARA). [facility]: Dose Right [facility]: CareDose [facility]: Dose Right [facility]: Teradose 4D [facility]: [place] [employer] CONTRAST TYPE AND DOSE: contrast/concentration: Isovue 350.00 mg/ml; Total Contrast Delivered: 100.0 ml; Total Saline Delivered: 48.4 ml RENAL FUNCTION: Not available RADIATION DOSE: CT Rad equipment meets quality standard of care and radiation dose reduction techniq ues were employed. CTDIvol: NaN - NaN mGy. DLP: 0 mGy-cm.. LIMITATIONS: None. FINDINGS: LOWER CHEST: No significant findings. No nodules or infiltrates. LIVER: Normal size. No masses. No dilated ducts. SPLEEN: Normal size. No focal lesions. PANCREAS: No masses. No significant calcifications. No adjacent inflammation or peripancreatic fluid collections. Pancreatic duct not dilated. GALLBLADDER: No identified stones by CT criteria. No inflammatory changes to suggest cholecystitis. ADRENAL GLANDS: No significant masses or asymmetry. RIGHT KIDNEY AND URETER: No solid masses. No significant calcifications. No hydronephrosis or hyd roureter. There are a few scattered simple cysts within the right kidney. LEFT KIDNEY AND URETER: No solid masses. No significant calcifications. No hydronephrosis or hydr oureter. AORTA AND VESSELS: No aneurysm. No dissection. Renal arteries, SMA, celiac without stenosis. RETROPERITONEUM: No retroperitoneal adenopathy, hemorrhage or masses. BOWEL AND PERITONEAL CAVITY: There is an inflamed diverticulum in the left colon at the descending co rory sigmoid colon junction with surrounding inflammatory change. No evidence of guille perforation. No organized fluid collection present. APPENDIX: Not visualized. PELVIS: No mass. No free fluid. Normal bladder. ABDOMINAL WALL: Postsurgical change at the umbilicus. BONES: No significant or acute findings. OTHER: No other significant finding. IMPRESSION: Diverticulitis at the junction of the descending colon and sigmoid colon without evidenc e of guille perforation or abscess formation. TECHNICAL DOCUMENTATION: JOB ID: [id number] Quality ID # [id number]: Final reports with documentation of one or more dose reduction techniques (e.g., Au tomated exposure control, adjustment of the mA and/or kV according to patient size, use of iterative reconstruction technique) 2010 [employer]- All Rights Reserved Reading location - IP/workstation name: [email or web address]
[2018-07-22] MEDS ORDERED: CIPROFLOXACIN HCL 500 MG TABLET PO ONE (18:00)
[2018-07-22] MEDS ORDERED: KETOROLAC TROMETHAMINE INJ/PF 30 MG/1 ML SDV IV ONE (18:01)
[2018-07-22] MEDS ORDERED: HYDROCODONE/ACETAMINOPHEN 5-325 MG (6 TAB/ER DISP) PO PRN (18:28)
[2018-07-22] MEDS ORDERED: METRONIDAZOLE 500 MG/NS RTU 500 MG/100 ML RTUPB IV ONE (18:30)
--- NOTE | 2018-07-22 21:38 | PDOC CONSULTATION ---
Consultation Consult Date: 07/22/18 Consult reason:: abdominal pain History of Present Illness Admission Date/PCP: HERMILO JARAMILLO MD Patient complains of: abdominal pain History of Present Illness: PRIMITIVO SOLORZANO JR is a 72 year old male, obese, with hypercholesterolemia and a hx of previous atrial fibrillation treated with cardiac ablation 5 yrs. ago, recent colon acute diverticulits resolved. He comes to the ED with a 3 day hx of diffuse abdominal pain, nausea, no fever or chills, no flatus, stools today, no blood noted. A CT scan A/P has been done today an dit shows acute left colon diverticulitis without complications. Past Medical History Cardiac Medical History: Reports: Atrial Fibrillation, Hypertension - ON MEDS Denies: Coronary Artery Disease, Myocardial Infarction Pulmonary Medical History: Denies: Asthma, Bronchitis, Chronic Obstructive Pulmonary Disease (COPD), Pneumonia Neurological Medical History: Denies: Seizures Musculoskeltal Medical History: Reports: Arthritis - MILD Hematology: Denies: Anemia Past Surgical History Past Surgical History: Reports: Appendectomy, Orthopedic Surgery - Fx of L 3rd digit, Tonsillectomy Social History Lives with: Family Smoking Status: Never Smoker Frequency of Alcohol Use: Occasional Hx Recreational Drug Use: No Hx Prescription Drug Abuse: No Family History Family History: Reviewed & Not Pertinent Parental Family History Reviewed: No Children Family History Reviewed: No Sibling(s) Family History Reviewed.: No Medication/Allergy Home Medications: Atorvastatin Calcium [Lipitor 20 mg Tablet] 1 tab PO QHS 05/10/18 Aspirin [Ecotrin] 162 mg PO DAILY PRN 07/22/18 Calcium/Magnesium/Zinc [Ynceobk-Fanizqlzl-Mbrl Tablet] 1 tab PO DAILY 07/22/18 Cyanocobalamin (Vitamin B-12) [Vitamin B-12 500 mcg Tablet] 500 mcg PO DAILY 07/22/18 Finasteride [Proscar 5 mg Tablet] 5 mg PO DAILY 07/22/18 Fluticasone Propionate [Flonase Nasal [place] 50 Mcg/[place] 16 gm] 2 spray NASL DAILY 07/22/18 Lisinopril [Prinivil 10 mg Tablet] 10 mg PO DAILY 07/22/18 Metoprolol Succinate [Toprol Xl] 25 mg PO DAILY 07/22/18 Multivitamin/Iron/Folic Acid [Centrum Adults Tablet] 1 tab PO DAILY 07/22/18 Silodosin [Rapaflo] 8 mg PO DAILY 07/22/18 Allergies/Adverse Reactions: Penicillins Allergy (Verified 03/26/17 12:37) PCN Allergy (Severe, Uncoded 11/07/14 18:12) Rash, Itching Physical Exam Vital Signs: Temp Pulse Resp BP Pulse Ox 97.8 F 83 18 138/69 H 93 07/22/18 19:00 07/22/18 19:10 07/22/18 19:10 07/22/18 16:01 07/22/18 20:00 Intake & Output 07/21/18 07/22/18 07/23/18 06:59 06:59 06:59 Intake Total 600 Balance 600 Weight 117.4 kg General appearance: PRESENT: no acute distress, cooperative, obese Head exam: PRESENT: atraumatic Eye exam: PRESENT: conjunctiva pink, EOMI, PERRLA Mouth exam: PRESENT: moist, neck supple Neck exam: PRESENT: full ROM Respiratory exam: PRESENT: clear to auscultation bettie, unlabored Cardiovascular exam: PRESENT: RRR GI/Abdominal exam: PRESENT: distended, normal bowel sounds, soft, tenderness - left side, no peritoneal signs Rectal exam: PRESENT: deferred Extremities exam: PRESENT: full ROM Musculoskeletal exam: PRESENT: ambulatory, full ROM Neurological exam: PRESENT: alert, oriented to person, oriented to place, oriented to time, oriented to situation, CN II-XII grossly intact Psychiatric exam: PRESENT: normal mood Focused psych exam: PRESENT: pressured speech Skin exam: PRESENT: warm Results Laboratory Results: 07/22/18 14:28 07/22/18 13:15 07/22/18 07/22/18 07/22/18 13:15 13:15 13:15 WBC Cancelled RBC Cancelled Hgb Cancelled Hct Cancelled MCV Cancelled MCH Cancelled MCHC Cancelled RDW Cancelled Plt Count Cancelled Seg Neutrophils % Cancelled Lymphocytes % Cancelled Monocytes % Cancelled Eosinophils % Cancelled Basophils % Cancelled Absolute Neutrophils Cancelled Absolute Lymphocytes Cancelled Absolute Monocytes Cancelled Absolute Eosinophils Cancelled Absolute Basophils Cancelled Sodium 138.7 Potassium 4.2 Chloride 105 Carbon Dioxide 27 Anion Gap 7 BUN 23 H Creatinine 0.92 Est GFR ( Amer) > 60 Est GFR (Non-Af Amer) > 60 Glucose 89 Calcium 10.2 Total Bilirubin 2.9 H AST 29 ALT 31 Alkaline Phosphatase 35 L Total Protein 7.1 Albumin 4.4 Lipase 191.1 Urine Color YELLOW Urine Appearance CLEAR Urine pH 6.0 Ur Specific [place] 1.017 Urine Protein NEGATIVE Urine Glucose (UA) NEGATIVE Urine Ketones NEGATIVE Urine Blood NEGATIVE Urine Nitrite NEGATIVE Ur Leukocyte Esterase NEGATIVE Urine WBC (Auto) 1 07/22/18 14:28 WBC 8.1 RBC 4.94 Hgb 15.1 Hct 42.8 MCV 87 MCH 30.6 MCHC 35.3 RDW 12.5 Plt Count 80 L Seg Neutrophils % 76.9 Lymphocytes % 15.7 Monocytes % 6.1 Eosinophils % 0.9 Basophils % 0.4 Absolute Neutrophils 6.2 Absolute Lymphocytes 1.3 Absolute Monocytes 0.5 Absolute Eosinophils 0.1 Absolute Basophils 0.0 Sodium Potassium Chloride Carbon Dioxide Anion Gap BUN Creatinine Est GFR ( Amer) Est GFR (Non-Af Amer) Glucose Calcium Total Bilirubin AST ALT Alkaline Phosphatase Total Protein Albumin Lipase Urine Color Urine Appearance Urine pH Ur Specific [place] Urine Protein Urine Glucose (UA) Urine Ketones Urine Blood Urine Nitrite Ur Leukocyte Esterase Urine WBC (Auto) Impressions: Abdomen/Pelvis CT 07/22/18 00:00 IMPRESSION: Diverticulitis at the junction of the descending colon and sigmoid colon without evidence of guille perforation or abscess formation. Assessment & Plan - Diagnosis (1) Diverticulitis large intestine Qualifiers: Diverticulitis bleeding: without bleeding Diverticulitis complication: without perforation or abscess Qualified Code(s): K57.32 - Diverticulitis of large intestine without perforation or abscess without bleeding - Plan Summary Plan Summary: A/ Abdominal pain x [address] scan significant for acute left colon/sigmoid diverticulitis blood work WNL P/ admission as per PCP NPO. IVF IV Abx Diet can be advanced once bowel function returns patient can have a few ice chips
[2018-07-22] MEDS ORDERED: ONDANSETRON HCL INJ/PF 4 MG/2 ML SDV IV PRN (22:22)
--- NOTE | 2018-07-22 22:42 | PDOC H&P ---
History of Present Illness Admission Date/PCP: 07/22/18 22:31 HERMILO JARAMILLO MD Patient complains of: Severe abdominal pain with some diarrhea and blood History of Present Illness: PRIMITIVO SOLORZANO JR is a 72 year old male Past Medical History Cardiac Medical History: Reports: Atrial Fibrillation, Hypertension - ON MEDS Denies: Coronary Artery Disease, Myocardial Infarction Pulmonary Medical History: Denies: Asthma, Bronchitis, Chronic Obstructive Pulmonary Disease (COPD), Pneumonia Neurological Medical History: Denies: Seizures Musculoskeltal Medical History: Reports: Arthritis - MILD Hematology: Denies: Anemia Past Surgical History Past Surgical History: Reports: Appendectomy, Orthopedic Surgery - Fx of L 3rd digit, Tonsillectomy Social History Information Source: Patient Lives with: Family Smoking Status: Never Smoker Frequency of Alcohol Use: Occasional Hx Recreational Drug Use: No Hx Prescription Drug Abuse: No Family History Family History: Reviewed & Not Pertinent Parental Family History Reviewed: Yes Children Family History Reviewed: Yes Sibling(s) Family History Reviewed.: Yes Medication/Allergy Home Medications: Atorvastatin Calcium [Lipitor 20 mg Tablet] 1 tab PO QHS 05/10/18 Aspirin [Ecotrin] 162 mg PO DAILY PRN 07/22/18 Calcium/Magnesium/Zinc [Vhnpbou-Jzofxkeor-Dnmh Tablet] 1 tab PO DAILY 07/22/18 Cyanocobalamin (Vitamin B-12) [Vitamin B-12 500 mcg Tablet] 500 mcg PO DAILY 07/22/18 Finasteride [Proscar 5 mg Tablet] 5 mg PO DAILY 07/22/18 Fluticasone Propionate [Flonase Nasal [place] 50 Mcg/[place] 16 gm] 2 spray NASL DAILY 07/22/18 Lisinopril [Prinivil 10 mg Tablet] 10 mg PO DAILY 07/22/18 Metoprolol Succinate [Toprol Xl] 25 mg PO DAILY 07/22/18 Multivitamin/Iron/Folic Acid [Centrum Adults Tablet] 1 tab PO DAILY 07/22/18 Silodosin [Rapaflo] 8 mg PO DAILY 07/22/18 Allergies/Adverse Reactions: Penicillins Allergy (Verified 03/26/17 12:37) PCN Allergy (Severe, Uncoded 11/07/14 18:12) Rash, Itching Review of Systems All systems: as per PMH Physical Exam Vital Signs: Temp Pulse Resp BP Pulse Ox 97.8 F 83 18 138/69 H 93 07/22/18 19:00 07/22/18 19:10 07/22/18 19:10 07/22/18 16:01 07/22/18 20:00 Intake & Output 07/21/18 07/22/18 07/23/18 06:59 06:59 06:59 Intake Total 600 Balance 600 Weight 117.4 kg General appearance: PRESENT: severe distress Eye exam: PRESENT: conjunctival injection Mouth exam: PRESENT: dry mucosa Neck exam: ABSENT: carotid bruit, JVD Respiratory exam: PRESENT: clear to auscultation bettie Cardiovascular exam: PRESENT: +S1, +S2 GI/Abdominal exam: PRESENT: soft. ABSENT: guarding Extremities exam: PRESENT: full ROM Musculoskeletal exam: PRESENT: ambulatory Neurological exam: PRESENT: alert, awake Results Laboratory Results: 07/22/18 14:28 07/22/18 13:15 07/22/18 07/22/18 07/22/18 13:15 13:15 13:15 WBC Cancelled RBC Cancelled Hgb Cancelled Hct Cancelled MCV Cancelled MCH Cancelled MCHC Cancelled RDW Cancelled Plt Count Cancelled Seg Neutrophils % Cancelled Lymphocytes % Cancelled Monocytes % Cancelled Eosinophils % Cancelled Basophils % Cancelled Absolute Neutrophils Cancelled Absolute Lymphocytes Cancelled Absolute Monocytes Cancelled Absolute Eosinophils Cancelled Absolute Basophils Cancelled Sodium 138.7 Potassium 4.2 Chloride 105 Carbon Dioxide 27 Anion Gap 7 BUN 23 H Creatinine 0.92 Est GFR ( Amer) > 60 Est GFR (Non-Af Amer) > 60 Glucose 89 Calcium 10.2 Total Bilirubin 2.9 H AST 29 ALT 31 Alkaline Phosphatase 35 L Total Protein 7.1 Albumin 4.4 Lipase 191.1 Urine Color YELLOW Urine Appearance CLEAR Urine pH 6.0 Ur Specific [place] 1.017 Urine Protein NEGATIVE Urine Glucose (UA) NEGATIVE Urine Ketones NEGATIVE Urine Blood NEGATIVE Urine Nitrite NEGATIVE Ur Leukocyte Esterase NEGATIVE Urine WBC (Auto) 1 07/22/18 14:28 WBC 8.1 RBC 4.94 Hgb 15.1 Hct 42.8 MCV 87 MCH 30.6 MCHC 35.3 RDW 12.5 Plt Count 80 L Seg Neutrophils % 76.9 Lymphocytes % 15.7 Monocytes % 6.1 Eosinophils % 0.9 Basophils % 0.4 Absolute Neutrophils 6.2 Absolute Lymphocytes 1.3 Absolute Monocytes 0.5 Absolute Eosinophils 0.1 Absolute Basophils 0.0 Sodium Potassium Chloride Carbon Dioxide Anion Gap BUN Creatinine Est GFR ( Amer) Est GFR (Non-Af Amer) Glucose Calcium Total Bilirubin AST ALT Alkaline Phosphatase Total Protein Albumin Lipase Urine Color Urine Appearance Urine pH Ur Specific [place] Urine Protein Urine Glucose (UA) Urine Ketones Urine Blood Urine Nitrite Ur Leukocyte Esterase Urine WBC (Auto) Impressions: Abdomen/Pelvis CT 07/22/18 00:00 IMPRESSION: Diverticulitis at the junction of the descending colon and sigmoid colon without evidence of guille perforation or abscess formation. Assessment & Plan - Diagnosis (1) Diverticulitis large intestine Qualifiers: Diverticulitis bleeding: without bleeding Diverticulitis complication: without perforation or abscess Qualified Code(s): K57.32 - Diverticulitis of large intestine without perforation or abscess without bleeding Is this a current diagnosis for this admission?: Yes Plan: We will place on n.p.o. status. Will start Cipro and Flagyl. Pain control Surgical consultation (2) Atrial fibrillation Qualifiers: Atrial fibrillation type: chronic Qualified Code(s): I48.2 - Chronic atrial fibrillation Is this a current diagnosis for this admission?: Yes Plan: Continue current medication (3) Hyperlipemia Qualifiers: Hyperlipidemia type: mixed hyperlipidemia Qualified Code(s): E78.2 - Mixed hyperlipidemia Is this a current diagnosis for this admission?: Yes Plan: Continue current medication (4) Sleep apnea Qualifiers: Sleep apnea type: unspecified type Qualified Code(s): G47.30 - Sleep apnea, unspecified Is this a current diagnosis for this admission?: Yes Plan: We will use CPAP if needed
[2018-07-23] MEDS: METRONIDAZOLE 500 MG/NS RTU 500 MG/100 ML RTUPB IV SCH ×4 (00:23→17:06)
[2018-07-23] MEDS: NORMAL SALINE 1000 ML 1,000 ML IV PRN ×2 (00:24→17:07)
[2018-07-23] MEDS: HYDROMORPHONE HCL INJ/PF 2 MG/ML AMPULE IV PRN ×4 (00:30→17:35)
[2018-07-23] MEDS: HEPARIN SOD (PORCINE) 5,000 UNIT/ML 1 ML SYRINGE SUBCUT SCH ×3 (06:05→22:33)
[2018-07-23 06:49] LABS: ABSOLUTE EOSINOPHILS # (AUTO) 0.1 10^3/uL (0.0-0.6); ABSOLUTE LYMPHOCYTES (AUTO) 1.2 10^3/uL (0.5-4.7); ABSOLUTE MONOCYTES (AUTO) 0.4 10^3/uL (0.1-1.4); ABSOLUTE NEUT (AUTO) 5.1 10^3/uL (1.7-8.2); BASOPHILS % (AUTO) 0.3 % (0-2); HEMATOCRIT 39.9 % (37.9-51.0); HEMOGLOBIN 14.2 g/dL (13.5-17.0); LYMPHOCYTES % (AUTO) 17.1 % (13-45); MEAN CORPUSCULAR HEMOGLOBIN 30.9 pg (27.0-33.4); MEAN CORPUSCULAR HGB CONC 35.6 g/dL (32.0-36.0); MEAN CORPUSCULAR VOLUME 87 fl (80-97); MONOCYTES % (AUTO) 6.4 % (3-13); RED BLOOD COUNT 4.59 10^6/uL (4.35-5.55); RED CELL DISTRIBUTION WIDTH 12.9 % (11.5-14.0); SEGMENTED NEUTROPHILS % (AUTO) 75.2 % (42-78); TOTAL CELLS COUNTED % (AUTO) 100 %; WHITE BLOOD COUNT 6.7 10^3/uL (4.0-10.5)
--- NOTE | 2018-07-23 06:54 | EKG REPORT ---
SEVERITY:- ABNORMAL ECG - SINUS RHYTHM NONSPECIFIC INTRAVENTRICULAR CONDUCTION DELAY NONSPECIFIC ST-T CHANGES- INFERIOR LEADS : Confirmed by: Aleksandar Kebede MD 23-Jul-2018 06:53:05
[2018-07-23 07:05] LABS: PLATELET COUNT 65 10^3/uL (150-450)
[2018-07-23 07:07] LABS: ALANINE AMINOTRANSFERASE 37 U/L (21-72); ALBUMIN 3.8 g/dL (3.5-5.0); ALKALINE PHOSPHATASE 35 U/L (38-126); ANION GAP 7 (5-19); ASPARTATE AMINO TRANSFERASE 24 U/L (17-59); BILIRUBIN,DIRECT 0.4 mg/dL (0.0-0.4); BILIRUBIN,TOTAL 3.2 mg/dL (0.2-1.3); BLOOD UREA NITROGEN 22 mg/dL (7-20); CALCIUM 9.1 mg/dL (8.4-10.2); CARBON DIOXIDE 28 mmol/L (22-30); CHLORIDE 103 mmol/L (98-107); GLUCOSE 83 mg/dL (75-110); POTASSIUM 4.1 mmol/L (3.6-5.0); SODIUM 138.3 mmol/L (137-145); TOTAL PROTEIN 6.4 g/dL (6.3-8.2)
[2018-07-23] MEDS: CIPROFLOXACIN 400 MG/D5W RTU 400 MG/200 ML RTUPB IV SCH ×2 (07:20→17:06)
--- NOTE | 2018-07-23 09:16 | PDOC PROGRESS REPORT ---
Subjective Progress Note for:: 07/23/18 Subjective:: Patient feels better; would like something to drink. Reason For Visit: ACUTE ABDOMINAL PAIN,ACUTE DIVERTICULITIS Physical Exam Vital Signs: Temp Pulse Resp BP Pulse Ox 97.4 F 73 18 94/54 L 97 07/23/18 03:13 07/23/18 07:00 07/23/18 03:13 07/23/18 03:13 07/23/18 03:13 Intake & Output 07/22/18 07/23/18 07/24/18 06:59 06:59 06:59 Intake Total 700 300 Balance 700 300 Weight 254.7 kg General appearance: PRESENT: no acute distress, other - Using CPAP machine GI/Abdominal exam: PRESENT: other - Soft, nontender no rigidity no peritoneal signs; minimal guarding left lower quadrant to deep palpation Results Laboratory Results: 07/23/18 06:05 07/23/18 06:05 07/22/18 07/22/18 07/22/18 13:15 13:15 13:15 WBC Cancelled RBC Cancelled Hgb Cancelled Hct Cancelled MCV Cancelled MCH Cancelled MCHC Cancelled RDW Cancelled Plt Count Cancelled Seg Neutrophils % Cancelled Lymphocytes % Cancelled Monocytes % Cancelled Eosinophils % Cancelled Basophils % Cancelled Absolute Neutrophils Cancelled Absolute Lymphocytes Cancelled Absolute Monocytes Cancelled Absolute Eosinophils Cancelled Absolute Basophils Cancelled Sodium 138.7 Potassium 4.2 Chloride 105 Carbon Dioxide 27 Anion Gap 7 BUN 23 H Creatinine 0.92 Est GFR ( Amer) > 60 Est GFR (Non-Af Amer) > 60 Glucose 89 Calcium 10.2 Total Bilirubin 2.9 H AST 29 ALT 31 Alkaline Phosphatase 35 L Total Protein 7.1 Albumin 4.4 Lipase 191.1 Urine Color YELLOW Urine Appearance CLEAR Urine pH 6.0 Ur Specific [place] 1.017 Urine Protein NEGATIVE Urine Glucose (UA) NEGATIVE Urine Ketones NEGATIVE Urine Blood NEGATIVE Urine Nitrite NEGATIVE Ur Leukocyte Esterase NEGATIVE Urine WBC (Auto) 1 07/22/18 07/23/18 07/23/18 14:28 06:05 06:05 WBC 8.1 6.7 RBC 4.94 4.59 Hgb 15.1 14.2 Hct 42.8 39.9 MCV 87 87 MCH 30.6 30.9 MCHC 35.3 35.6 RDW 12.5 12.9 Plt Count 80 L 65 L Seg Neutrophils % 76.9 75.2 Lymphocytes % 15.7 17.1 Monocytes % 6.1 6.4 Eosinophils % 0.9 1.0 Basophils % 0.4 0.3 Absolute Neutrophils 6.2 5.1 Absolute Lymphocytes 1.3 1.2 Absolute Monocytes 0.5 0.4 Absolute Eosinophils 0.1 0.1 Absolute Basophils 0.0 0.0 Sodium 138.3 Potassium 4.1 Chloride 103 Carbon Dioxide 28 Anion Gap 7 BUN 22 H Creatinine 0.95 Est GFR ( Amer) > 60 Est GFR (Non-Af Amer) > 60 Glucose 83 Calcium 9.1 Total Bilirubin 3.2 H AST 24 ALT 37 Alkaline Phosphatase 35 L Total Protein 6.4 Albumin 3.8 Lipase Urine Color Urine Appearance Urine pH Ur Specific [place] Urine Protein Urine Glucose (UA) Urine Ketones Urine Blood Urine Nitrite Ur Leukocyte Esterase Urine WBC (Auto) Impressions: Abdomen/Pelvis CT 07/22/18 00:00 IMPRESSION: Diverticulitis at the junction of the descending colon and sigmoid colon without evidence of guille perforation or abscess formation. Assessment & Plan - Diagnosis (1) Diverticulitis large intestine Qualifiers: Diverticulitis bleeding: without bleeding Diverticulitis complication: without perforation or abscess Qualified Code(s): K57.32 - Diverticulitis of large intestine without perforation or abscess without bleeding Is this a current diagnosis for this admission?: Yes Plan: Impression: Clinically improved with intravenous antibiotics and bowel rest Recommendations: 1. We will start diet; order written 2. We will provide literature on management of diverticular disease 3. Patient has had a colonoscopy within the last of 5-7 years without pathologic findings. This being patient's first episode of uncomplicated div erticulitis, there is no indication for surgical intervention at this time. We will sign off, please reconsult if clinically indicated.
--- NOTE | 2018-07-23 09:29 | PDOC PROGRESS REPORT ---
Subjective Progress Note for:: 07/23/18 Subjective:: The patient states to feel slightly better. He states that he has been constipated over the past several days prior to admission. His pain is controlled with medication. Reason For Visit: ACUTE ABDOMINAL PAIN,ACUTE DIVERTICULITIS Physical Exam Vital Signs: Temp Pulse Resp BP Pulse Ox 97.4 F 73 18 94/54 L 97 07/23/18 03:13 07/23/18 07:00 07/23/18 03:13 07/23/18 03:13 07/23/18 03:13 Intake & Output 07/22/18 07/23/18 07/24/18 06:59 06:59 06:59 Intake Total 700 300 Balance 700 300 Weight 254.7 kg General appearance: PRESENT: mild distress Head exam: PRESENT: atraumatic Eye exam: PRESENT: conjunctival injection Mouth exam: PRESENT: dry mucosa Neck exam: ABSENT: carotid bruit, JVD Respiratory exam: PRESENT: clear to auscultation bettie Cardiovascular exam: PRESENT: RRR, +S1, +S2 GI/Abdominal exam: PRESENT: rebound, soft, tenderness Additonal comments: Significant tenderness in both left and right lower quadrant without any guarding but there is some rebound tenderness in the left lower quadrant on deep palpation Extremities exam: PRESENT: full ROM Musculoskeletal exam: PRESENT: ambulatory Neurological exam: PRESENT: alert, awake Results Laboratory Results: 07/23/18 06:05 07/23/18 06:05 07/22/18 07/22/18 07/22/18 13:15 13:15 13:15 WBC Cancelled RBC Cancelled Hgb Cancelled Hct Cancelled MCV Cancelled MCH Cancelled MCHC Cancelled RDW Cancelled Plt Count Cancelled Seg Neutrophils % Cancelled Lymphocytes % Cancelled Monocytes % Cancelled Eosinophils % Cancelled Basophils % Cancelled Absolute Neutrophils Cancelled Absolute Lymphocytes Cancelled Absolute Monocytes Cancelled Absolute Eosinophils Cancelled Absolute Basophils Cancelled Sodium 138.7 Potassium 4.2 Chloride 105 Carbon Dioxide 27 Anion Gap 7 BUN 23 H Creatinine 0.92 Est GFR ( Amer) > 60 Est GFR (Non-Af Amer) > 60 Glucose 89 Calcium 10.2 Total Bilirubin 2.9 H AST 29 ALT 31 Alkaline Phosphatase 35 L Total Protein 7.1 Albumin 4.4 Lipase 191.1 Urine Color YELLOW Urine Appearance CLEAR Urine pH 6.0 Ur Specific [place] 1.017 Urine Protein NEGATIVE Urine Glucose (UA) NEGATIVE Urine Ketones NEGATIVE Urine Blood NEGATIVE Urine Nitrite NEGATIVE Ur Leukocyte Esterase NEGATIVE Urine WBC (Auto) 1 07/22/18 07/23/18 07/23/18 14:28 06:05 06:05 WBC 8.1 6.7 RBC 4.94 4.59 Hgb 15.1 14.2 Hct 42.8 39.9 MCV 87 87 MCH 30.6 30.9 MCHC 35.3 35.6 RDW 12.5 12.9 Plt Count 80 L 65 L Seg Neutrophils % 76.9 75.2 Lymphocytes % 15.7 17.1 Monocytes % 6.1 6.4 Eosinophils % 0.9 1.0 Basophils % 0.4 0.3 Absolute Neutrophils 6.2 5.1 Absolute Lymphocytes 1.3 1.2 Absolute Monocytes 0.5 0.4 Absolute Eosinophils 0.1 0.1 Absolute Basophils 0.0 0.0 Sodium 138.3 Potassium 4.1 Chloride 103 Carbon Dioxide 28 Anion Gap 7 BUN 22 H Creatinine 0.95 Est GFR ( Amer) > 60 Est GFR (Non-Af Amer) > 60 Glucose 83 Calcium 9.1 Total Bilirubin 3.2 H AST 24 ALT 37 Alkaline Phosphatase 35 L Total Protein 6.4 Albumin 3.8 Lipase Urine Color Urine Appearance Urine pH Ur Specific [place] Urine Protein Urine Glucose (UA) Urine Ketones Urine Blood Urine Nitrite Ur Leukocyte Esterase Urine WBC (Auto) Impressions: Abdomen/Pelvis CT 07/22/18 00:00 IMPRESSION: Diverticulitis at the junction of the descending colon and sigmoid colon without evidence of guille perforation or abscess formation. Assessment & Plan - Diagnosis (1) Diverticulitis large intestine Qualifiers: Diverticulitis bleeding: without bleeding Diverticulitis complication: without perforation or abscess Qualified Code(s): K57.32 - Diverticulitis of large intestine without perforation or abscess without bleeding Is this a current diagnosis for this admission?: Yes Plan: We will continue with antibiotics. Will advance diet to clear liquid. (2) Atrial fibrillation Qualifiers: Atrial fibrillation type: chronic Qualified Code(s): I48.2 - Chronic atrial fibrillation Is this a current diagnosis for this admission?: Yes Plan: Continue current medication (3) Hyperlipemia Qualifiers: Hyperlipidemia type: mixed hyperlipidemia Qualified Code(s): E78.2 - Mixed hyperlipidemia Is this a current diagnosis for this admission?: Yes (4) Sleep apnea Qualifiers: Sleep apnea type: unspecified type Qualified Code(s): G47.30 - Sleep apnea, unspecified Is this a current diagnosis for this admission?: Yes Plan: We will use CPAP if needed
[2018-07-23] MEDS ORDERED: (PENDING PHARMACY ID) (Silodosin [Rapaflo] 8 MG) PO SCH (10:00)
[2018-07-23] MEDS: FAMOTIDINE INJ/PF 20 MG/2 ML SDV IV SCH ×2 (10:01→22:34)
[2018-07-23] MEDS: METOPROLOL SUCCINATE 25 MG TAB.SR.24H PO SCH (10:01)
[2018-07-23] MEDS: ASPIRIN 81 MG TABLET, ENT COATED PO SCH (10:01)
[2018-07-23] MEDS: FINASTERIDE 5 MG TABLET PO SCH (10:01)
[2018-07-24] MEDS: METRONIDAZOLE 500 MG/NS RTU 500 MG/100 ML RTUPB IV SCH ×2 (00:53→05:40)
[2018-07-24] MEDS: NORMAL SALINE 1000 ML 1,000 ML IV PRN (00:54)
[2018-07-24] MEDS: HEPARIN SOD (PORCINE) 5,000 UNIT/ML 1 ML SYRINGE SUBCUT SCH (05:37)
[2018-07-24] MEDS: CIPROFLOXACIN 400 MG/D5W RTU 400 MG/200 ML RTUPB IV SCH (07:42)
[2018-07-24] MEDS: HYDROMORPHONE HCL INJ/PF 2 MG/ML AMPULE IV PRN (08:47)
[2018-07-24] MEDS ORDERED: OXYCODONE HCL IR 5 MG TABLET PO PRN (09:50)
[2018-07-24] MEDS ORDERED: ONDANSETRON 4 MG TAB.RAPDIS PO PRN (09:51)
--- NOTE | 2018-07-24 09:56 | PDOC PROGRESS REPORT ---
Subjective Progress Note for:: 07/24/18 Subjective:: The patient states to feel better. He is still having a lot of pain. He has not had a bowel movement. He is tolerating clear liquids well. Reason For Visit: ACUTE ABDOMINAL PAIN,ACUTE DIVERTICULITIS Physical Exam Vital Signs: Temp Pulse Resp BP Pulse Ox 97.6 F 69 16 116/76 99 07/24/18 07:09 07/24/18 07:09 07/24/18 07:09 07/24/18 07:09 07/24/18 07:09 Intake & Output 07/23/18 07/24/18 07/25/18 06:59 06:59 06:59 Intake Total 700 4341 300 Output Total 1000 Balance 700 3341 300 Weight 254.7 kg 254.4 kg General appearance: PRESENT: mild distress Head exam: PRESENT: atraumatic Eye exam: PRESENT: conjunctiva pink Mouth exam: PRESENT: dry mucosa Neck exam: ABSENT: carotid bruit, JVD Respiratory exam: PRESENT: clear to auscultation bettie Cardiovascular exam: PRESENT: +S1, +S2 GI/Abdominal exam: PRESENT: soft, tenderness. ABSENT: guarding, rebound Extremities exam: PRESENT: full ROM Musculoskeletal exam: PRESENT: ambulatory Neurological exam: PRESENT: alert, awake Results Laboratory Results: 07/23/18 06:05 07/23/18 06:05 Impressions: Abdomen/Pelvis CT 07/22/18 00:00 IMPRESSION: Diverticulitis at the junction of the descending colon and sigmoid colon without evidence of guille perforation or abscess formation. Assessment & Plan - Diagnosis (1) Diverticulitis large intestine Qualifiers: Diverticulitis bleeding: without bleeding Diverticulitis complication: without perforation or abscess Qualified Code(s): K57.32 - Diverticulitis of large intestine without perforation or abscess without bleeding Is this a current diagnosis for this admission?: Yes Plan: We will stop the IV fluids. We will continue with clear liquids. We will stop all the IV medications and switch to p.o. (2) Atrial fibrillation Qualifiers: Atrial fibrillation type: chronic Qualified Code(s): I48.2 - Chronic atrial fibrillation Is this a current diagnosis for this admission?: Yes Plan: Continue current medication (3) Hyperlipemia Qualifiers: Hyperlipidemia type: mixed hyperlipidemia Qualified Code(s): E78.2 - Mixed hyperlipidemia Is this a current diagnosis for this admission?: Yes Plan: Continue current medication (4) Sleep apnea Qualifiers: Sleep apnea type: unspecified type Qualified Code(s): G47.30 - Sleep apnea, unspecified Is this a current diagnosis for this admission?: Yes Plan: We will use CPAP if needed
[2018-07-24] MEDS: ASPIRIN 81 MG TABLET, ENT COATED PO SCH (12:00)
[2018-07-24] MEDS: METOPROLOL SUCCINATE 25 MG TAB.SR.24H PO SCH (12:00)
[2018-07-24] MEDS: FINASTERIDE 5 MG TABLET PO SCH (12:00)
[2018-07-24] MEDS: PANTOPRAZOLE SODIUM 40 MG TABLET.DR PO SCH (12:00)
[2018-07-24] MEDS: METRONIDAZOLE 250 MG TABLET PO SCH ×2 (15:57→22:42)
[2018-07-24] MEDS: CIPROFLOXACIN HCL 500 MG TABLET PO SCH ×2 (15:57→22:42)
[2018-07-25] MEDS: PANTOPRAZOLE SODIUM 40 MG TABLET.DR PO SCH (05:27)
[2018-07-25] MEDS: METRONIDAZOLE 250 MG TABLET PO SCH (05:27)
[2018-07-25 06:01] LABS: ABSOLUTE EOSINOPHILS # (AUTO) 0.1 10^3/uL (0.0-0.6); ABSOLUTE LYMPHOCYTES (AUTO) 1.1 10^3/uL (0.5-4.7); ABSOLUTE MONOCYTES (AUTO) 0.4 10^3/uL (0.1-1.4); ABSOLUTE NEUT (AUTO) 1.5 10^3/uL (1.7-8.2); BASOPHILS % (AUTO) 0.7 % (0-2); EOSINOPHILS % (AUTO) 2.8 % (0-6); HEMATOCRIT 39.6 % (37.9-51.0); LYMPHOCYTES % (AUTO) 36.7 % (13-45); MEAN CORPUSCULAR HEMOGLOBIN 30.7 pg (27.0-33.4); MEAN CORPUSCULAR HGB CONC 35.3 g/dL (32.0-36.0); MEAN CORPUSCULAR VOLUME 87 fl (80-97); MONOCYTES % (AUTO) 11.9 % (3-13); RED BLOOD COUNT 4.55 10^6/uL (4.35-5.55); RED CELL DISTRIBUTION WIDTH 12.5 % (11.5-14.0); SEGMENTED NEUTROPHILS % (AUTO) 47.9 % (42-78); TOTAL CELLS COUNTED % (AUTO) 100 %; WHITE BLOOD COUNT 3.1 10^3/uL (4.0-10.5)
[2018-07-25 06:02] LABS: PLATELET COUNT 65 10^3/uL (150-450)
[2018-07-25 06:12] LABS: ALANINE AMINOTRANSFERASE 35 U/L (21-72); ALBUMIN 3.7 g/dL (3.5-5.0); ALKALINE PHOSPHATASE 36 U/L (38-126); ANION GAP 8 (5-19); ASPARTATE AMINO TRANSFERASE 26 U/L (17-59); BILIRUBIN,DIRECT 0.4 mg/dL (0.0-0.4); BILIRUBIN,TOTAL 2.6 mg/dL (0.2-1.3); BLOOD UREA NITROGEN 9 mg/dL (7-20); CALCIUM 9.3 mg/dL (8.4-10.2); CARBON DIOXIDE 27 mmol/L (22-30); CHLORIDE 105 mmol/L (98-107); GLUCOSE 92 mg/dL (75-110); POTASSIUM 4.3 mmol/L (3.6-5.0); SODIUM 140.4 mmol/L (137-145); TOTAL PROTEIN 6.3 g/dL (6.3-8.2)
--- NOTE | 2018-07-25 08:27 | PDOC DISCHARGE SUMMARY ---
General - Admit/Disc Date/PCP Admission Date/Primary Care Provider: 07/22/18 22:31 HERMILO JARAMILLO MD Discharge Date: 07/25/18 - Discharge Diagnosis (1) Diverticulitis large intestine Is this a current diagnosis for this admission?: Yes Summary: Continue advancing diet to full liquid and then regular. continue with antibiotics (2) Atrial fibrillation Is this a current diagnosis for this admission?: Yes Summary: Continue current medication (3) Hyperlipemia Is this a current diagnosis for this admission?: Yes Summary: Continue current medication (4) Sleep apnea Is this a current diagnosis for this admission?: Yes Summary: Continue CPAP (5) Thrombocytopenia Is this a current diagnosis for this admission?: Yes Summary: Will obtain a workup as an outpatient. Possibly related to heparin and/or Pepcid - Additional Information Discharge Diet: Cardiac Discharge Activity: Activity As Tolerated Prescriptions: Ciprofloxacin HCl [Cipro 500 mg Tablet] 500 mg PO Q12 #20 tablet Metronidazole [Flagyl 250 mg Tablet] 250 mg PO Q8 #30 tablet Home Medications: Atorvastatin Calcium [Lipitor 20 mg Tablet] 1 tab PO QHS 05/10/18 Aspirin [Ecotrin] 162 mg PO DAILY PRN 07/22/18 Calcium/Magnesium/Zinc [Rqyzttc-Hsghlgnjk-Nnvs Tablet] 1 tab PO DAILY 07/22/18 Cyanocobalamin (Vitamin B-12) [Vitamin B-12 500 mcg Tablet] 500 mcg PO DAILY 07/22/18 Finasteride [Proscar 5 mg Tablet] 5 mg PO DAILY 07/22/18 Fluticasone Propionate [Flonase Nasal [place] 50 Mcg/[place] 16 gm] 2 spray NASL DAILY 07/22/18 Lisinopril [Prinivil 10 mg Tablet] 10 mg PO DAILY 07/22/18 Metoprolol Succinate [Toprol Xl] 25 mg PO DAILY 07/22/18 Multivitamin/Iron/Folic Acid [Centrum Adults Tablet] 1 tab PO DAILY 07/22/18 Silodosin [Rapaflo] 8 mg PO DAILY 07/22/18 Ciprofloxacin HCl [Cipro 500 mg Tablet] 500 mg PO Q12 #20 tablet 07/25/18 Metronidazole [Flagyl 250 mg Tablet] 250 mg PO Q8 #30 tablet 07/25/18 History of Present Illness History of Present Illness: PRIMITIVO Karina SOLORZANO JR is a 72 year old male Hospital Course Hospital Course: The patient was admitted with an acute abdominal pain and an acute diverticulitis. He did have some peritoneal signs. He has improved with n.p.o. IV fluids and antibiotics. His antibiotics have been switched from IV to p.o. He tolerated medications well. The first 48 hours he has required a lot of pain medication and narcotic but none over the past 24 hours. On the day of discharge he appeared comfortable. Physical Exam Vital Signs: Temp Pulse Resp BP Pulse Ox 97.2 F 62 14 106/78 98 07/25/18 03:09 07/25/18 03:09 07/25/18 03:09 07/25/18 03:09 07/25/18 03:09 Intake & Output 07/24/18 07/25/18 07/26/18 06:59 06:59 06:59 Intake Total 4341 2309 Output Total 1000 1050 Balance 3341 1259 Weight 254.4 kg 114.2 kg General appearance: PRESENT: no acute distress Head exam: PRESENT: atraumatic Eye exam: PRESENT: conjunctiva pink Mouth exam: PRESENT: moist Neck exam: ABSENT: carotid bruit, JVD Respiratory exam: PRESENT: clear to auscultation bettie Cardiovascular exam: PRESENT: irregular rhythm, +S1, +S2 GI/Abdominal exam: PRESENT: normal bowel sounds, soft, tenderness. ABSENT: guarding, rebound Extremities exam: PRESENT: full ROM Musculoskeletal exam: PRESENT: ambulatory Neurological exam: PRESENT: alert, awake Results Laboratory Results: 07/25/18 04:54 07/25/18 04:54 07/25/18 07/25/18 04:54 04:54 WBC 3.1 L RBC 4.55 Hgb 14.0 Hct 39.6 MCV 87 MCH 30.7 MCHC 35.3 RDW 12.5 Plt Count 65 L Seg Neutrophils % 47.9 Lymphocytes % 36.7 Monocytes % 11.9 Eosinophils % 2.8 Basophils % 0.7 Absolute Neutrophils 1.5 L Absolute Lymphocytes 1.1 Absolute Monocytes 0.4 Absolute Eosinophils 0.1 Absolute Basophils 0.0 Sodium 140.4 Potassium 4.3 Chloride 105 Carbon Dioxide 27 Anion Gap 8 BUN 9 Creatinine 0.90 Est GFR ( Amer) > 60 Est GFR (Non-Af Amer) > 60 Glucose 92 Calcium 9.3 Total Bilirubin 2.6 H AST 26 ALT 35 Alkaline Phosphatase 36 L Total Protein 6.3 Albumin 3.7 Impressions: Abdomen/Pelvis CT 07/22/18 00:00 IMPRESSION: Diverticulitis at the junction of the descending colon and sigmoid colon without evidence of guille perforation or abscess formation. Qualifiers - * PATIENT BEING DISCHARGED WITH ANY OF THE FOLLOWING DIAGNOSIS: No
[2018-07-25 09:20] VITALS: BP 104/72
[2018-07-25] MEDS: CIPROFLOXACIN HCL 500 MG TABLET PO SCH (09:24)
[2018-07-25] MEDS: FINASTERIDE 5 MG TABLET PO SCH (09:24)
[2018-07-25] MEDS: METOPROLOL SUCCINATE 25 MG TAB.SR.24H PO SCH (09:24)
[2018-07-25] MEDS: ASPIRIN 81 MG TABLET, ENT COATED PO SCH (09:24)
== END 2018-07-25 10:00 | disposition home or self-care (01) | DRG 392 ==
LOC: ER 12:44 → EH 22:31 → 3N 23:37
PROVIDERS: ADMIT Internal Medicine; ATTEND Internal Medicine
PROC: 5A09457 Assistance with Respiratory Ventilation, 24-96 Consecutive Hours, Continuous Positive Airway Pressure (ICD-10-PCS; principal; 2018-07-23)
DX: K57.32 Diverticulitis of large intestine without perforation or abscess without bleeding (principal); I48.0 Paroxysmal atrial fibrillation; G47.30 Sleep apnea, unspecified; D69.6 Thrombocytopenia, unspecified; E66.9 Obesity, unspecified; I10 Essential (primary) hypertension; I48.2 Chronic atrial fibrillation; E78.2 Mixed hyperlipidemia; Z79.899 Other long term (current) drug therapy; Z88.0 Allergy status to penicillin; Z79.82 Long term (current) use of aspirin
CPT/HCPCS: 36415; 74177; 80053; 81001; 83690; 85025; 93005; 93010; 94660; 96361; 96365; 96375; 96376; 99285; J0744; J1170; J1644; J1885; J2405; J3490; J7030; J7040; S0028

== ENCOUNTER 2018-08-21 18:37 | Emergency (ER) | payer MEDICARE, BC ==
[2018-08-21] MEDS ORDERED: NORMAL SALINE 1000 ML 1,000 ML IV ONE (19:43)
--- NOTE | 2018-08-21 19:44 | ER Document Report ---
ED General - General Chief Complaint: Abdominal Pain Stated Complaint: LEFT QUADRANT PAIN Time Seen by Provider: 08/21/18 19:43 Primary Care Provider: HERMILO JARAMILLO MD [COMMUNITY BASED STAFF] - Follow up as needed MASOOD ARGUETA MD [ACTIVE STAFF] - Follow up in 3-5 days Notes: Patient is a 72-year-old male with history of diverticulitis that presents to the emergency department for chief complaint of left lower quadrant abdominal pain. Patient states that he started having sharp pain in his left lower quadra nt earlier this morning, and felt that it may be related to diverticulitis. He had for the first time in his life about a month ago, and was admitted to the hospital due to need for pain control. He states he finished a course of Cipro and Flagyl and got completely better. He states his been constipated over the past 3 days as well, having a hard time with a bowel movement. Denies any fevers, chills, night sweats, nausea, vomiting. He currently rates his pain as a 3 out of 10 describes it is tolerable, but it is a sharp pain. Denies any dysuria, hematuria or difficulty urinating or urinary frequency. Past Medical History: History of atrial fibrillation status post ablation Past Surgical History: Cardiac ablation Social History: Denies tobacco, alcohol or drug use. Family History: Reviewed and noncontributory for presenting illness Allergies: Reviewed, see documented allergy list. REVIEW OF SYSTEMS: Other than noted above, the 12 point review of systems was reviewed with the christina medellin and were negative, all pertinent findings are included in the HPI. PHYSICAL EXAMINATION: Vital signs reviewed, nursing noted reviewed. GENERAL: Well-appearing, well-nourished and in no acute distress. HEAD: Atraumatic, normocephalic. EYES: Eyes appear normal, extraocular movements intact, sclera anicteric, conjunctiva are normal. ENT: nares patent, oropharynx clear without exudates. Moist mucous membranes. NECK: Normal range of motion, supple without lymphadenopathy LUNGS: Breath sounds clear to auscultation bilaterally and equal. No wheezes rales or rhonchi. HEART: Regular rate and rhythm without murmurs ABDOMEN: Soft, obese, mild left lower quadrant tenderness to palpation, no CVA tenderness, normoactive bowel sounds. No rebound, guarding, or rigidity. No masses appreciated. EXTREMITIES: Nontender, good range of motion, no pitting or edema. NEUROLOGICAL: No focal neurological deficits. Moves all extremities spontaneously Motor and sensory grossly intact on exam. PSYCH: Normal mood, normal affect. SKIN: Warm, Dry, normal turgor, no rashes or lesions noted on exposed skin TRAVEL OUTSIDE OF THE [place] IN LAST 30 DAYS: No - Related Data Allergies/Adverse Reactions: Penicillins Allergy (Verified 03/26/17 12:37) PCN Allergy (Severe, Uncoded 11/07/14 18:12) Rash, Itching Past Medical History - Social History Smoking Status: Never Smoker Family History: Reviewed & Not Pertinent Patient has suicidal ideation: No Patient has homicidal ideation: No - Past Medical History Cardiac Medical History: Reports: Hx Atrial Fibrillation, Hx Hypertension - ON MEDS Denies: Hx Coronary Artery Disease, Hx Heart Attack Pulmonary Medical History: Denies: Hx Asthma, Hx Bronchitis, Hx COPD, Hx Pneumonia Neurological Medical History: Denies: Hx Cerebrovascular Accident, Hx Seizures Renal/ Medical History: Reports: Hx Benign Prostatic Hyperplasia. Denies: Hx Peritoneal Dialysis Musculoskeletal Medical History: Reports Hx Arthritis - MILD Past Surgical History: Reports: Hx Appendectomy, Hx Cardiac Surgery - Ablation, Hx Orthopedic Surgery - Fx of L 3rd digit, Hx Tonsillectomy - Immunizations Hx Diphtheria, Pertussis, Tetanus Vaccination: Yes Hx Pneumococcal Vaccination: 01/17/14 Physical Exam - Vital signs Vitals: Temp Pulse Resp BP Pulse Ox 97.9 F 81 20 140/91 H 97 08/21/18 18:42 08/21/18 18:42 08/21/18 18:42 08/21/18 18:42 08/21/18 18:42 Course - Re-evaluation Re-evalutation: Patient seen and examined vital signs reviewed. Laboratory data and/or imaging were ordered as appropriate for the patient's presenting symptoms and complaint, with consideration of any critical or life threatening conditions that may be associated with their obtained history and exam as noted above. Patient was treated with IV fluids, given a dose of IV Zofran and morphine for pain and nausea Results were reviewed when available and demonstrated no leukocytosis, ess entially unremarkable blood work, he is noted to have a mildly elevated bilirubin, but this appears to be chronic for this patient for some time, CT imaging demonstrated acute diverticulitis, with small pockets of air within the diverticuli, radiologist, this cannot rule out microperforation, regardless based on the patient's physical exam, lack of leukocytosis, do not feel that this is the case based on his clinical examination and presentation, I believe the patient can be discharged after a dose of IV Flagyl and IV ciprofloxacin. 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 The patient was re-evaluated and was stable and much improved after single dose of morphine. Evaluation was most consistent with acute diverticulitis. Results were discussed with the patient at this point, after careful consideration I feel that that patient can be discharged from the emergency department, the patient was educated treatments and reasons to return to the emergency department based on their presumed diagnosis as noted above, they were advised to followup with a primary care physician in 2-3 days. Patient was agreeable to plan of care. *Note is created using voice recognition software and may contain spelling, syntax or grammatical errors. Laboratory 08/21/18 08/21/18 19:50 19:50 WBC 7.7 RBC 5.02 Hgb 15.0 Hct 43.8 MCV 87 MCH 29.9 MCHC 34.3 RDW 12.7 Plt Count 80 L Seg Neutrophils % 73.3 Lymphocytes % 18.3 Monocytes % 7.1 Eosinophils % 0.9 Basophils % 0.4 Absolute Neutrophils 5.6 Absolute Lymphocytes 1.4 Absolute Monocytes 0.5 Absolute Eosinophils 0.1 Absolute Basophils 0.0 Sodium 140.4 Potassium 4.4 Chloride 105 Carbon Dioxide 26 Anion Gap 9 BUN 18 Creatinine 0.81 Est GFR ( Amer) > 60 Est GFR (Non-Af Amer) > 60 Glucose 83 Calcium 10.1 Total Bilirubin 2.8 H Direct Bilirubin 0.3 Neonat Total Bilirubin Not Reportable Neonat Direct Bilirubin Not Reportable Neonat Indirect Bili Not Reportable AST 31 ALT 44 Alkaline Phosphatase 31 L Total Protein 7.2 Albumin 4.2 Lipase 159.4 Abdomen/Pelvis CT 08/21/18 20:30 IMPRESSION: Findings consistent with left lower quadrant diverticulitis in the proximal sigmoid/distal descending colon. This was present on the patient's previous examination although the inflammatory changes appear slightly worse. Tiny gas collections are likely within the diverticulum but small amount of microperforation is not excluded. No evidence of abscess formation Enlarged spleen - Vital Signs Vital signs: Temp Pulse Resp BP Pulse Ox 97.9 F 81 20 140/91 H 97 08/21/18 18:42 08/21/18 18:42 08/21/18 18:42 08/21/18 18:42 08/21/18 18:42 - Laboratory Result Diagrams: 08/21/18 19:50 08/21/18 19:50 Laboratory results interpreted by me: 08/21/18 08/21/18 19:50 19:50 Plt Count 80 L Total Bilirubin 2.8 H Alkaline Phosphatase 31 L Discharge - Discharge Clinical Impression: Acute diverticulitis Condition: Stable Disposition: HOME, SELF-CARE Instructions: Diverticulitis (REPLACED BY [facility]) Additional Instructions: Please complete the entire course of antibiotics, even if you are feeling better sooner, and only take the pain medication for breakthrough type pain, and please follow-up with Dr. Rivers, as well as with the surgeon if needed. If your pain is not controlled at home, please return to the emergency department sooner. Prescriptions: Ciprofloxacin HCl [Cipro 500 mg Tablet] 500 mg PO BID #20 tablet Hydrocodone/Acetaminophen [[place] 5-325 mg Tablet] 1 tab PO Q8H #12 tablet Metronidazole [Flagyl 500 mg Tablet] 500 mg PO TID #30 tablet Referrals: HERMILO JARAMILLO MD [COMMUNITY BASED STAFF] - Follow up as needed MASOOD ARGUETA MD [ACTIVE STAFF] - Follow up in 3-5 days
[2018-08-21 20:06] LABS: ABSOLUTE EOSINOPHILS # (AUTO) 0.1 10^3/uL (0.0-0.6); ABSOLUTE LYMPHOCYTES (AUTO) 1.4 10^3/uL (0.5-4.7); ABSOLUTE MONOCYTES (AUTO) 0.5 10^3/uL (0.1-1.4); ABSOLUTE NEUT (AUTO) 5.6 10^3/uL (1.7-8.2); BASOPHILS % (AUTO) 0.4 % (0-2); EOSINOPHILS % (AUTO) 0.9 % (0-6); HEMATOCRIT 43.8 % (37.9-51.0); LYMPHOCYTES % (AUTO) 18.3 % (13-45); MEAN CORPUSCULAR HEMOGLOBIN 29.9 pg (27.0-33.4); MEAN CORPUSCULAR HGB CONC 34.3 g/dL (32.0-36.0); MEAN CORPUSCULAR VOLUME 87 fl (80-97); MONOCYTES % (AUTO) 7.1 % (3-13); RED BLOOD COUNT 5.02 10^6/uL (4.35-5.55); RED CELL DISTRIBUTION WIDTH 12.7 % (11.5-14.0); SEGMENTED NEUTROPHILS % (AUTO) 73.3 % (42-78); TOTAL CELLS COUNTED % (AUTO) 100 %; WHITE BLOOD COUNT 7.7 10^3/uL (4.0-10.5)
[2018-08-21 20:09] LABS: PLATELET COUNT 80 10^3/uL (150-450)
[2018-08-21 20:19] LABS: ALANINE AMINOTRANSFERASE 44 U/L (21-72); ALBUMIN 4.2 g/dL (3.5-5.0); ALKALINE PHOSPHATASE 31 U/L (38-126); ANION GAP 9 (5-19); ASPARTATE AMINO TRANSFERASE 31 U/L (17-59); BILIRUBIN,DIRECT 0.3 mg/dL (0.0-0.4); BILIRUBIN,TOTAL 2.8 mg/dL (0.2-1.3); BLOOD UREA NITROGEN 18 mg/dL (7-20); CALCIUM 10.1 mg/dL (8.4-10.2); CARBON DIOXIDE 26 mmol/L (22-30); CHLORIDE 105 mmol/L (98-107); GLUCOSE 83 mg/dL (75-110); LIPASE 159.4 U/L (23-300); POTASSIUM 4.4 mmol/L (3.6-5.0); SODIUM 140.4 mmol/L (137-145); TOTAL PROTEIN 7.2 g/dL (6.3-8.2)
[2018-08-21] MEDS ORDERED: MORPHINE SULFATE 10 MG/ML INJ IV ONE (21:00)
[2018-08-21] MEDS ORDERED: ONDANSETRON HCL INJ/PF 4 MG/2 ML SDV IV ONE (21:00)
--- NOTE | 2018-08-21 21:42 | RADIOLOGY REPORT (SQ) ---
EXAM DESCRIPTION: CT ABDOMEN PELVIS WITH IV CONTRAST COMPLETED DATE/TME: 08/21/2018 20:30 CLINICAL HISTORY: 72 years Male llq pain COMPARISON: 07/22/2018 TECHNIQUE: Contiguous axial images obtained through the abdomen and pelvis following IV contrast. Reformatted images obtained. This exam was performed according to our department optimization program which includes automated exposure control, adjustment of the mA and/or kv according to patient size and/or use of iterative reconstruction technique. FINDINGS: The liver appears unremarkable. Spleen is mildly enlarged measuring 13.6 cm. The pancreas is unremarkable. There is a small low-attenuation left adrenal nodule measuring 1.3 cm which is unchanged in the patient's previous exam this has Hounsfield units consistent with fat. No follow-up is recommended. The kidneys appear unremarkable. No hydronephrosis. The gallbladder is visualized. No aneurysmal dilatation of the aorta. No bowel obstruction. The appendix is nonvisualized. Previous postsurgical changes in the midline.. There is diverticulosis with inflammatory change surrounding a left lower quadrant diverticulum. There is adjacent stranding and wall thickening. This was present on the patient's previous exam and appears slightly worse. Tiny gas collections appear to be within the diverticulum although microperforation cannot be entirely excluded. There is no evidence of large volume of free intraperitoneal air or evidence of abscess formation. IMPRESSION: Findings consistent with left lower quadrant diverticulitis in the proximal sigmoid/distal descending colon. This was present on the patient's previous examination although the inflammatory changes appear slightly worse. Tiny gas collections are likely within the diverticulum but small amount of microperforation is not excluded. No evidence of abscess formation Enlarged spleen
[2018-08-21] MEDS ORDERED: CIPROFLOXACIN 400 MG/D5W RTU 400 MG/200 ML RTUPB IV ONE (21:52)
[2018-08-21] MEDS ORDERED: HYDROCODONE/ACETAMINOPHEN 5-325 MG (6 TAB/ER DISP) PO PRN (22:15)
[2018-08-21] MEDS ORDERED: METRONIDAZOLE 500 MG/NS RTU 500 MG/100 ML RTUPB IV ONE (22:30)
[2018-08-22 00:27] VITALS: BP 132/76
== END 2018-08-22 00:26 | disposition home or self-care (01) ==
LOC: ER 18:37
DX: K57.92 Diverticulitis of intestine, part unspecified, without perforation or abscess without bleeding (principal); R10.32 Left lower quadrant pain; I10 Essential (primary) hypertension; Z79.899 Other long term (current) drug therapy
CPT/HCPCS: 99284; 96361; 96375; 96365; 96367; 36415; 83690; 85025; 80053; 74177; J3490; J2270; J2405; J7030; J0744; A9270

== ENCOUNTER → 2019-02-08 | Outpatient (CLI) | payer MEDICARE, BC ==
[2019-02-08 09:03] LABS: ABSOLUTE EOSINOPHILS # (AUTO) 0.1 10^3/uL (0.0-0.6); ABSOLUTE LYMPHOCYTES (AUTO) 1.1 10^3/uL (0.5-4.7); ABSOLUTE MONOCYTES (AUTO) 0.3 10^3/uL (0.1-1.4); ABSOLUTE NEUT (AUTO) 1.5 10^3/uL (1.7-8.2); BASOPHILS % (AUTO) 0.6 % (0-2); EOSINOPHILS % (AUTO) 2.4 % (0-6); HEMATOCRIT 42.5 % (37.9-51.0); HEMOGLOBIN 14.6 g/dL (13.5-17.0); MEAN CORPUSCULAR HEMOGLOBIN 30.2 pg (27.0-33.4); MEAN CORPUSCULAR HGB CONC 34.4 g/dL (32.0-36.0); MEAN CORPUSCULAR VOLUME 88 fl (80-97); MONOCYTES % (AUTO) 9.1 % (3-13); RED BLOOD COUNT 4.85 10^6/uL (4.35-5.55); RED CELL DISTRIBUTION WIDTH 12.7 % (11.5-14.0); SEGMENTED NEUTROPHILS % (AUTO) 50.9 % (42-78); TOTAL CELLS COUNTED % (AUTO) 100 %
[2019-02-08 09:25] LABS: ALBUMIN 4.4 g/dL (3.5-5.0); ALKALINE PHOSPHATASE 33 U/L (38-126); ANION GAP 10 (5-19); ASPARTATE AMINO TRANSFERASE 31 U/L (17-59); BILIRUBIN,DIRECT 0.2 mg/dL (0.0-0.4); BILIRUBIN,TOTAL 1.9 mg/dL (0.2-1.3); BLOOD UREA NITROGEN 18 mg/dL (7-20); CALCIUM 9.8 mg/dL (8.4-10.2); CARBON DIOXIDE 26 mmol/L (22-30); CHLORIDE 107 mmol/L (98-107); CHOLESTEROL 115.54 mg/dL (0-200); GLUCOSE 104 mg/dL (75-110); PLATELET COUNT 78 10^3/uL (150-450); POTASSIUM 4.6 mmol/L (3.6-5.0); TOTAL PROTEIN 7.2 g/dL (6.3-8.2); TRIGLYCERIDES 134 mg/dL (<150)
[2019-02-08 09:37] LABS: DIRECT LDL 54 mg/dL (<100)
== END ==
LOC: OD 07:37
PROVIDERS: ATTEND Internal Medicine
DX: I48.0 Paroxysmal atrial fibrillation (principal); G47.33 Obstructive sleep apnea (adult) (pediatric); E78.5 Hyperlipidemia, unspecified; R35.1 Nocturia; R73.9 Hyperglycemia, unspecified; R53.83 Other fatigue
CPT/HCPCS: 36415; 80053; 80061; 83036; 84153; 84443; 85025

== ENCOUNTER 2019-02-09 06:44 | Day surgery (SDC) | payer MEDICARE, BC ==
[2019-02-09] MEDS ORDERED: DIPHENHYDRAMINE HCL 50 MG/ML VIAL ONE (07:22)
[2019-02-09] MEDS ORDERED: ONDANSETRON HCL INJ/PF 4 MG/2 ML SDV ONE (07:22)
[2019-02-09] MEDS ORDERED: NALOXONE HCL INJ/PF 0.4 MG/1 ML SDV ONE (07:23)
[2019-02-09] MEDS ORDERED: FLUMAZENIL INJ 0.5 MG/5 ML VIAL ONE (07:23)
[2019-02-09] MEDS ORDERED: EPINEPHRINE INJ 1 MG/10 ML DISP.SYRIN ONE (07:23)
[2019-02-09] MEDS ORDERED: GLUCAGON,HUMAN RECOMB 1 MG INJ ONE (07:23)
[2019-02-09] MEDS: MIDAZOLAM 2 MG/2 ML INJ ONE ×3 (07:39→07:50)
[2019-02-09] MEDS: FENTANYL CITRATE INJ/PF 100 MCG/2 ML AMPUL ONE ×2 (07:39→07:51)
--- NOTE | 2019-02-09 08:23 | Discharge Summary ---
Discharge Summary (SDC) - Discharge Final Diagnosis: Sigmoid colon polyp status post colonoscopy, polypectomy Date of Surgery: 02/09/19 Discharge Date: 02/09/19 Condition: Good Treatment or Instructions: [facility] [place] [id number] POST ENDOSCOPY DISCHARGE INSTRUCTIONS 1. Diet: Start clear liquids that a regular diet as tolerated. 2. Resume all preoperative medications. All oral anticoagulants and aspirins can be resumed 24 hours after procedure. 3. If a polypectomy was performed some bleeding per rectum may occur. This should stop within 3 days. If not, please contact the office. 4. If you had a colonoscopy you may experience some bloating and delayed return of normal bowel function for several days, your regular bowel movement pattern should resume within a week. 5. Please contact [facility] at to make an appointment with Dr. Olivares for 1 to 3 weeks following procedure. 6. If you have any questions or concerns regarding your care,treatment plan or follow up, please contact our office. 7. Per clinical guidelines we recommend you undergo a repeat colonoscopy in 3-5 years. Referrals: ALLI BACON MD [Primary Care Provider] - Discharge Diet: As Tolerated Discharge Activity: Activity As Tolerated Home Care Assistance: None Needed Report the Following to Your Physician Immediately: Shortness of Breath, Increase in Pain, Fever over 101 Degrees
--- NOTE | 2019-02-09 08:28 | Operative Report ---
Operative Report DATE OF SURGERY: 02/09/19 PREOPERATIVE DIAGNOSIS: 1. History of colon polyps. 2. History of diverticul osis POSTOPERATIVE DIAGNOSIS: 1. Sigmoid colon polyp. 2. No evidence of diverticulosis OPERATION: 1. Total colonoscopy to cecum. 2. Sigmoid colon polypectomy SURGEON: PIPPA QUISPE ANESTHESIA: Moderate Sedation TISSUE REMOVED OR ALTERED: Polyp COMPLICATIONS: None INTRAOPERATIVE FINDINGS: See below PROCEDURE: Obtaining informed consent the patient was taken from the preoperative holding area to the main endoscopy suite where monitoring devices were attached to the patient. Plan and surgical timeout were conducted The patient was placed in the left lateral decubitus position with knees to chest. A perianal examination was performed. There was no visible or palpable anorectal pathology. Sphincter tone was felt to be normal. There is no evidence of significant interval external hemorrhoids. The flexible adult colonoscope was advanced through the anal rectal canal, all the way to the cecum. Visualization of the cecum was achieved and the ileocecal valve, the appendiceal orifice and transillumination of the anterior abdominal wall were all appreciated; this was an excellent study on the well-prepped bowel. There is a small polyp in sigmoid colon visualized, secured with the loop snare and cauterized with a hot snare, and polypectomy performed. The specimen disintegrated on cauterization, so no specimen was sent to pathology.. The colonoscope was withdrawn slowly and methodically checked and the mucosa carefully. There was no evidence of tumor, stricture, bleeding. There was no evidence of diverticuloses. The scope was slowly withdrawn through the anal rectal canal. Complete visualization of the rectum was achieved with photodocumentation. The scope was withdrawn to the patient's anus. The patient tolerated the procedure well and was taken to the recovery area in stable condition. Per surveillance guidelines, patient be appropriate candidate for follow-up colonoscopy in 3 to 5 years. He may resume aspirin in the next 24 hours.
[2019-02-09 09:09] VITALS: BP 109/80
== END 2019-02-09 09:05 | disposition home or self-care (01) ==
LOC: END 06:44
PROVIDERS: ATTEND Surgery
DX: Z12.11 Encounter for screening for malignant neoplasm of colon (principal); D12.5 Benign neoplasm of sigmoid colon; Z86.010 Personal history of colon polyps; Z87.19 Personal history of other diseases of the digestive system; I10 Essential (primary) hypertension; N40.0 Benign prostatic hyperplasia without lower urinary tract symptoms; Z79.899 Other long term (current) drug therapy
CPT/HCPCS: 45385; J2250; J3010; J0171; J1200; J1610; J2310; J2405; J3490

== ENCOUNTER → 2019-07-18 | Outpatient (CLI) | payer MEDICARE, BC ==
--- NOTE | 2019-07-18 12:23 | RADIOLOGY REPORT (SQ) ---
EXAM DESCRIPTION: HIP RIGHT AP/LATERAL IMAGES COMPLETED DATE/TIME: 07/18/2019 12:09 pm REASON FOR STUDY: . M54.16 RADICULOPATHY, LUMBAR REGION COMPARISON: None. NUMBER OF VIEWS: Two views. TECHNIQUE: AP and frog-leg view of the right hip. LIMITATIONS: None. FINDINGS: MINERALIZATION: Normal. RIGHT HIP: No fracture or dislocation. No worrisome bone lesions. No contour deformity. No joint sp josé miguel narrowing. OPPOSITE HIP: No fracture or dislocation. No worrisome bone lesions. SOFT TISSUES: No findings. OTHER: No other significant finding. IMPRESSION: NEGATIVE STUDY OF THE RIGHT HIP. NO EXPLANATION FOR PAIN. TECHNICAL DOCUMENTATION: JOB ID: [id number] 2010 [email or web address]- All Rights Reserved Reading location - IP/workstation name: [email or web address]
--- NOTE | 2019-07-18 12:23 | RADIOLOGY REPORT (SQ) ---
EXAM DESCRIPTION: SACRUM AND COCCYX IMAGES COMPLETED DATE/TIME: 07/18/2019 12:09 pm REASON FOR STUDY: RADICULOPATHY, LUMBAR REGION M54.16 RADICULOPATHY, LUMBAR REGION COMPARISON: None. NUMBER OF VIEWS: Three views. TECHNIQUE: AP, lateral, and tilt views of the sacrum and coccyx. LIMITATIONS: None. FINDINGS: MINERALIZATION: Normal. BONES: No acute fracture or dislocation. No worrisome bone lesions. SOFT TISSUES: No soft tissue swelling. No foreign body. OTHER: No other significant finding. IMPRESSION: NEGATIVE STUDY OF THE SACRUM AND COCCYX. TECHNICAL DOCUMENTATION: JOB ID: [id number] 2010 [employer]- All Rights Reserved Reading location - IP/workstation name: [email or web address]
--- NOTE | 2019-07-18 12:24 | RADIOLOGY REPORT (SQ) ---
EXAM DESCRIPTION: LUMBAR SPINE COMPLETE IMAGES COMPLETED DATE/TIME: 07/18/2019 12:09 pm REASON FOR STUDY: . M54.16 RADICULOPATHY, LUMBAR REGION COMPARISON: None. NUMBER OF VIEWS: Five views including obliques. TECHNIQUE: AP, lateral, oblique, and sacral radiographic images acquired of the lumbar spine. LIMITATIONS: None. FINDINGS: MINERALIZATION: Normal. SEGMENTATION: Normal. No transitional anatomy. ALIGNMENT: There is scoliosis with concavity toward the right in the upper lumbar spine toward the le ft in the lower lumbar spine. VERTEBRAE: Maintained height. No fracture or worrisome bone lesion. DISCS: Disc space narrowing at L1-L2, L2-L3 and L3-L4. Vacuum phenomena present at multiple levels. POSTERIOR ELEMENTS: Pedicles and facets are intact. No pars defect or posterior arch defects. HARDWARE: None in the spine. PARASPINAL SOFT TISSUES: Normal. PELVIS: Intact as visualized. No fractures or worrisome bone lesions. SI joints intact. OTHER: No other significant finding. IMPRESSION: Scoliosis. Multilevel disc degenerative disease. No acute findings. TECHNICAL DOCUMENTATION: JOB ID: [id number] 2010 [employer]- All Rights Reserved Reading location - IP/workstation name: [email or web address]
== END ==
LOC: OD 11:45
PROVIDERS: ATTEND Family Medicine Geriatric Medicine
DX: M54.16 Radiculopathy, lumbar region (principal); M25.551 Pain in right hip
CPT/HCPCS: 72110; 72220

== ENCOUNTER → 2019-07-20 | Outpatient (CLI) | payer MEDICARE, BC ==
--- NOTE | 2019-07-20 15:34 | RADIOLOGY REPORT (SQ) ---
EXAM DESCRIPTION: MRI LUMBAR SPINE COMBO IMAGES COMPLETED DATE/TIME: 07/20/2019 3:12 pm REASON FOR STUDY: M54.16 RADICULOPATHY, LUMBAR REGION M54.16 RADICULOPATHY, LUMBAR REGION COMPARISON: Lumbar spine films 07/18/2019 CT abdomen pelvis 07/22/2018 TECHNIQUE: Sagittal and Axial imaging includes T1, T1 post gadolinium, T2, STIR and gradient echo se quences. Coronal T2/HASTE imaging. CONTRAST TYPE AND DOSE: 20 mL Dotarem. RENAL FUNCTION: Not indicated. ACR Type II contrast agent associated with few, if any, unconfounded cases of NSF LIMITATIONS: None. FINDINGS: VISUALIZED UPPER ABDOMEN: Limited evaluation. No acute or suspicious findings suggested. SEGMENTATION: No transitional anatomy. The lowest well-developed disc space is labeled L5-S1. ALIGNMENT: Convex leftward lumbar curvature VERTEBRAE: Intact. No fractures. BONE MARROW: Unremarkable DISC SIGNAL: Diffuse decreased T2 weighted intervertebral disc signal POSTERIOR ELEMENTS: Old left L3 micro laminectomy defect HARDWARE: Add CORD AND CONUS: Normal in size and signal intensity. Conus at the L1-2 level. SOFT TISSUES: No aortic aneurysm seen. No bulky retroperitoneal adenopathy or mass. No paraspinal mas s or fluid. T11-12: At the upper edge of the field of view. Broad diffuse posterior disc bulging and bilateral facet hypertrophy causes borderline central canal narrowing and mild foraminal narrowing right greate r than left T12-L1: Mild bilateral facet hypertrophy. No central or foraminal stenosis L1-L2: Mild bilateral facet hypertrophy. No significant central or foraminal stenosis next L2-L3: Broad diffuse posterior disc bulge and bony spurring is present with mild bilateral facet and ligament hypertrophy. This causes mild central canal narrowing, best shown on axial T2 image 13. Th ere is moderate right foraminal narrowing with partial effacement of the fat around the exiting right L2 nerve root. No significant left foraminal narrowing L3-L4: Remote prior left micro laminectomy. Bulky left-sided facet sclerosis is present. Ligamentum flavum ossification. These findings along with broad diffuse posterior disc bulging left greater th an right causes high-grade left foraminal narrowing. There is effacement of the fat around the exiti ng left L3 nerve root, and mild left nerve root enhancement. Findings are best shown on sagittal denisse ge 13 and axial images 18-20. Mild right foraminal narrowing without exit L3 nerve root impingement. L4-L5: Asymmetric bulky left facet arthropathy is present. No central or right foraminal narrowing. Mild left foraminal narrowing. L5-S1: Moderate bilateral assess hypertrophy is present. No significant central or foraminal narrowi ng SACRUM: Visualized upper sacrum intact. ENHANCEMENT: Right L3 nerve root enhancement OTHER: No other significant findings. IMPRESSION: Significant right L3-4 foraminal narrowing. Remote prior micro laminectomy with bony sp urring. TECHNICAL DOCUMENTATION: JOB ID: [id number] 2010 [employer]- All Rights Reserved Reading location - IP/workstation name: [email or web address]
== END ==
LOC: RAD 13:41
PROVIDERS: ATTEND Family Medicine Geriatric Medicine
DX: M54.16 Radiculopathy, lumbar region (principal)
CPT/HCPCS: 82565; 72158; A9576

== ENCOUNTER → 2020-03-08 | Outpatient (CLI) | payer MEDICARE, BC ==
[2020-03-08 08:44] LABS: ABSOLUTE EOSINOPHILS # (AUTO) 0.1 10^3/uL (0.0-0.6); ABSOLUTE LYMPHOCYTES (AUTO) 1.2 10^3/uL (0.5-4.7); ABSOLUTE MONOCYTES (AUTO) 0.5 10^3/uL (0.1-1.4); ABSOLUTE NEUT (AUTO) 2.1 10^3/uL (1.7-8.2); BASOPHILS % (AUTO) 0.4 % (0-2); EOSINOPHILS % (AUTO) 2.1 % (0-6); HEMATOCRIT 42.7 % (37.9-51.0); HEMOGLOBIN 14.8 g/dL (13.5-17.0); LYMPHOCYTES % (AUTO) 31.5 % (13-45); MEAN CORPUSCULAR HEMOGLOBIN 31.4 pg (27.0-33.4); MEAN CORPUSCULAR HGB CONC 34.7 g/dL (32.0-36.0); MEAN CORPUSCULAR VOLUME 91 fl (80-97); MONOCYTES % (AUTO) 11.8 % (3-13); RED BLOOD COUNT 4.71 10^6/uL (4.35-5.55); RED CELL DISTRIBUTION WIDTH 12.5 % (11.5-14.0); SEGMENTED NEUTROPHILS % (AUTO) 54.2 % (42-78); TOTAL CELLS COUNTED % (AUTO) 100 %; WHITE BLOOD COUNT 3.9 10^3/uL (4.0-10.5)
[2020-03-08 09:00] LABS: ALBUMIN 4.4 g/dL (3.5-5.0); ALKALINE PHOSPHATASE 33 U/L (38-126); ANION GAP 7 (5-19); ASPARTATE AMINO TRANSFERASE 41 U/L (17-59); BILIRUBIN,TOTAL 2.2 mg/dL (0.2-1.3); BLOOD UREA NITROGEN 23 mg/dL (7-20); CALCIUM 9.7 mg/dL (8.4-10.2); CARBON DIOXIDE 28 mmol/L (22-30); CHLORIDE 104 mmol/L (98-107); CHOLESTEROL 131.37 mg/dL (0-200); GLUCOSE 93 mg/dL (75-110); POTASSIUM 4.6 mmol/L (3.6-5.0); TRIGLYCERIDES 60 mg/dL (<150)
[2020-03-08 09:10] LABS: PLATELET COUNT 80 10^3/uL (150-450)
[2020-03-08 09:13] LABS: DIRECT LDL 55 mg/dL (<100)
== END ==
LOC: OD 07:46
PROVIDERS: ATTEND Family Medicine Geriatric Medicine
DX: E78.5 Hyperlipidemia, unspecified (principal); R35.1 Nocturia; K21.9 Gastro-esophageal reflux disease without esophagitis; G47.33 Obstructive sleep apnea (adult) (pediatric); R53.83 Other fatigue; Z12.5 Encounter for screening for malignant neoplasm of prostate
CPT/HCPCS: 36415; 84443; 85025; 80053; 80061; G0103